=== PATIENT | female | born 1975 | race Caucasian/White ===

== ENCOUNTER 2016-07-31 18:03 | Emergency (ER) | payer OTHER ==
[~2016-07-31] VITALS: Ht 157.5 cm; Wt 70.4 kg
[~2016-07-31 18:03] MED LIST: ALLERGY SERUM INJ; FEXO1TAB49 PO; MOME200A INH; TRIA1SPR4 NAE
[2016-07-31 18:06] VITALS: TEMP 36.9; Ht 157.5 cm; Wt 70.4 kg
--- NOTE | 2016-07-31 18:24 | EMERGENCY ROOM VISIT NOTE ---
History Report prepared by Nacho: Jeremias Centeno Under the Supervision of: Dr. Tyler Ambriz M.D. First contact with patient: 18:10 Chief Complaint: ED VAG BLEEDING Stated Complaint: CHO, SPOTTING, CRAMPING- 14 WKS History of Present Illness The patient is a 41 year old female who presents to the Emergency Room with complaints of an episode of vaginal bleeding that occurred earlier today. The patient is 14-weeks and follows up with Vonda WAYNE. She says that so far the has been going fine. The patient had blood work done, and had even more extensive testing due to older age. She had an ultrasound done at 7-weeks and had another one a few weeks ago. Everything came out fine. Last Saturday, the patient had an appointment and had the heartbeat checked, and everything was good. 2 days ago, she started getting abdominal pain and noted a lot of gas. She did not have a bowel movement for 2 days, which was unusual for her. Later that day, she had 5 quick bouts of diarrhea. She could not get in touch with her OBGYN. Today, she went to her chiropractor and noticed spotting on her underwear. The bleeding was not heavy. She says her pain has gone away, although she has been having a headache today that is unlike previous migraines that she have had. She did get nauseous as well when the chiropractor was working on her neck. The patient is allergic to Tylenol. The patient does note that last night she stayed up really late due to work she had to do, and did not get much sleep. She has been exhausted the entire , but she says she was told this is normal. Source of History: patient Onset: Earlier today Position: other (vaginal bleeding) Symptom Intensity: "not heavy" Timing: other (episode) Associated Symptoms: + abdominal pain (has since resolved), + diarrhea ( since resolved), + nausea Note: No other associated symptoms noted. Review of Systems See HPI for pertinent positives & negatives. A total of 10 systems reviewed and were otherwise negative. Past Medical & Surgical Medical Problems: (1) FEMORAL NEUROPATHY Family History FHx: cancer Heart disease Social History Smoking Status: Never Smoker Alcohol Use: none Drug Use: none Marital Status: in relationship Housing Status: lives with family Occupation Status: employed Current/Historical Medications Scheduled Ascorbic Acid (Vitamin C), 500 MG PO DAILY B-Complex Vitamins (Vitamin B Complex), 1 TAB PO DAILY Cholecalciferol (Vitamin D3), 1,000 MCG PO DAILY Multivit/Min/Iron/Fol Ac/Pren ( Vitamin), 1 TAB PO DAILY Scheduled PRN Epinephrine (Epipen 2-Barry), 0.3 MG IM UD PRN for ALLERGIC REACTION Allergies Coded Allergies: Cefazolin (Verified Allergy, Severe, HIVES, 03/17/13) RECEIVED INITIAL DOSE THEN BECAME ITCHY AND HAD A HIVE BELOW HER LEFT EYE Ciprofloxacin (Verified Allergy, Severe, TROUBLE BREATHING, 03/17/13) Iodinated Diagnostic Agents (Verified Allergy, Severe, HIVES,SOB, 04/30/15 ) Red Dye (Verified Allergy, Severe, RED #40 = HIVES ANAPHYLAXIS, 03/17/13) [place] (Verified Allergy, Intermediate, HIVES, 03/17/13) Erythromycin (Verified Allergy, Intermediate, HIVES, 03/17/13) Guaifenesin (Verified Allergy, Intermediate, HIVES, 03/17/13) Meglumine (Verified Allergy, Intermediate, HIVES, 03/17/13) Phenylephrine (Verified Allergy, Intermediate, HIVES, 03/17/13) Shellfish (Verified Allergy, Intermediate, HIVES, 03/17/13) Water, Sterile (Verified Allergy, Intermediate, HIVES, 03/17/13) Aspirin (Verified Allergy, Unknown, HIVES, 03/17/13) BEE STING (Verified Allergy, Unknown, swelling, 04/30/15) [place] Oil (Verified Allergy, Unknown, HIVES, 04/30/15) can tolerate in sm amts High Fructose [place] Syrup (Verified Allergy, Unknown, HIVES, 04/30/15) Wheat (Verified Allergy, Unknown, HIVES, 04/30/15) can tolerate sm amts Physical Exam Vital Signs Date Time Temp Pulse Resp B/P Pulse Ox O2 Delivery O2 Flow Rate FiO2 07/31/16 19:20 96 18 130/68 97 07/31/16 18:06 36.9 107 16 130/85 100 Room Air Physical Exam GENERAL: Patient is anxious appearing and in minimal distress. HEENT: No acute trauma, normocephalic atraumatic, mucous membranes moist, no nasal congestion, no scleral icterus. NECK: No stridor, no adenopathy, no meningismus, trachea is midline. LUNGS: No dyspnea. Clear to auscultation and equal bilaterally. No wheeze, no rhonchi. HEART: Regular rate and rhythm. No murmurs, rubs, gallops appreciated. ABDOMEN: Soft, nontender, bowel sounds positive, no masses appreciated, no peritonitis. BACK: No midline tenderness, no CVA tenderness EXTREMITIES: Normal motion all extremities, no cyanosis, no edema. NEUROLOGIC: Alert and oriented, no acute motor or sensory deficits, no focal weakness, cranial nerves grossly intact. SKIN: No rash, no jaundice, no diaphoresis. Medical Decision & Procedures Laboratory Results Test 07/31/16 18:40 Urine Color YELLOW Urine Appearance CLEAR (CLEAR) Urine pH 5.5 (4.5-7.5) Urine Specific [place] 1.000 (1.000-1.030) Urine Protein NEG (NEG) Urine Glucose (UA) NEG (NEG) Urine Ketones NEG (NEG) Urine Occult Blood NEG (NEG) Urine Nitrite NEG (NEG) Urine Bilirubin NEG (NEG) Urine Urobilinogen NEG (NEG) Urine Leukocyte Esterase TRACE (NEG) Urine WBC (Auto) 1-5 /hpf (0-5) Urine RBC (Auto) 0-4 /hpf (0-4) Urine Hyaline Casts (Auto) 0 /lpf (0-5) Urine Epithelial Cells (Auto) >30 /lpf (0-5) Urine Bacteria (Auto) NEG (NEG) Laboratory results as reviewed by me. ED Course 1809: The patient was evaluated in room B8. A complete history and physical exam was performed. 1837: I performed a bedside ultrasound, which revealed an intrauterine with a heart rate of 150 and a right lateral small subchorionic hemorrhage. 1910: I reevaluated the patient and she is resting comfortably. The patient verbally expressed understanding and agreement of the treatment plan. The patient will be discharged. Medical Decision Differential: Menstrual Bleeding, Dysfunctional Uterine Bleeding, Infectious, Ectopic , Bleeding Dyscrasia, amongst other pathologies entertained. 41 yr old female arrives with scant vaginal spotting earlier in the day with some abdominal cramping. She notes being 14 wks without previous issues thus far. Abdomen is benign without surgical findings. She is not significantly hypertensive. Mild headache though admits increased stress and minimal sleep. Does not have meningitis by examination and notes with closing eyes for a bit already feeling better. Bedside US with IUP, + movement and normal FHR. Questionable small right lateral subchorionic hemorrhage by US. UA is clear. She she stable and looks well. Follow up with OB tomorrow to double check that her blood type O+ which she says was just done the other day. Impression Primary Impression: Vaginal bleeding in patient at less than 20 weeks gestation Additional Impression: Subchorionic bleed Scribe Attestation The scribe's documentation has been prepared under my direction and personally reviewed by me in its entirety. I confirm that the note above accurately reflects all work, treatment, procedures, and medical decision making performed by me. Departure Information Dispostion Home / Self-Care Referrals Manuel Altamirano M.D. (PCP) Forms HOME CARE DOCUMENTATION FORM, IMPORTANT VISIT INFORMATION, WORK / SCHOOL INSTRUCTIONS Patient Instructions Bleeding Early Preg, My [facility] Health Problem Qualifiers Additional Impression: Subchorionic bleed Fetus number: single or unspecified fetus Trimester: second trimester Qualified Codes: O41.8X20 - Other specified disorders of amniotic fluid and membranes, second trimester, not applicable or unspecified
[2016-07-31 19:04] LABS: URINE APPEARANCE CLEAR (CLEAR); URINE BILIRUBIN NEG (NEG); URINE COLOR YELLOW; URINE EPITHELIAL CELL AUTO >30 /lpf (0-5); URINE NITRITE NEG (NEG); URINE PH 5.5 (4.5-7.5); UROBILINOGEN NEG (NEG); ZZUR CULT IF INDIC CLEAN CATCH NO
[2016-07-31 19:05] LABS: MANUAL MICROSCOPIC REQUIRED? NO; REVIEW REQ? NO
[2016-07-31 19:20] VITALS: BP 130/68; PULSE 96; O2SAT 97
[2016-10-02] MEDS ORDERED: CHOL1000 PO (10:44)
[2016-10-02] MEDS ORDERED: PRENTAB26 PO (11:11)
[2016-10-02] MEDS ORDERED: ASCO500C5 PO (18:28)
[2016-10-02] MEDS ORDERED: B-COTAB18 PO (18:28)
[2016-10-02] MEDS ORDERED: EPP3/2 IM (18:28)
== END 2016-07-31 19:22 | disposition home or self-care (01) ==
LOC: C.EDB 18:04
DX: O20.8 Other hemorrhage in early pregnancy (principal); Z3A.14 14 weeks gestation of pregnancy; Z88.2 Allergy status to sulfonamides; Z88.3 Allergy status to other anti-infective agents; Z88.8 Allergy status to other drugs, medicaments and biological substances; Z88.6 Allergy status to analgesic agent; Z91.018 Allergy to other foods; Z91.030 Bee allergy status; Z91.041 Radiographic dye allergy status; Z80.9 Family history of malignant neoplasm, unspecified; Z82.49 Family history of ischemic heart disease and other diseases of the circulatory system

== ENCOUNTER 2016-09-15 21:54 | Emergency (ER) | payer OTHER ==
[~2016-09-15] VITALS: Ht 157.5 cm; Wt 73.4 kg
[2016-09-15 22:04] VITALS: TEMP 37.1; Ht 157.5 cm; Wt 73.4 kg
[2016-09-15] MEDS ORDERED: SODIUM CHLORIDE 0.9% 1000ML 1,000 ML IV STA (22:17)
[2016-09-15 22:38] LABS: MANUAL MICROSCOPIC REQUIRED? NO; REVIEW REQ? NO; URINE APPEARANCE CLEAR (CLEAR); URINE BILIRUBIN NEG (NEG); URINE COLOR YELLOW; URINE EPITHELIAL CELL AUTO >30 /lpf (0-5); URINE NITRITE NEG (NEG); URINE SPECIFIC GRAVITY 1.008 (1.000-1.030); UROBILINOGEN NEG (NEG); ZZUR CULT IF INDIC CLEAN CATCH YES
[2016-09-15 22:57] VITALS: O2SAT 96
[2016-09-15 23:08] LABS: BASO % 0.1 %; BASO ABS # 0.01 K/uL (0-0.2); COMPLETE YES; EOS % 1.4 %; HEMATOCRIT 31.6 % (37-47); IG% 0.9 %; LYMPH % 21.1 %; LYMPH ABS # 2.36 K/uL (1.2-3.4); MEAN CELL VOLUME 89.5 fL (80-100); MEAN CORPUSCULAR HEMOGLOBIN 31.4 pg (25-34); MEAN CORPUSCULAR HGB CONC 35.1 g/dl (32-36); MEAN PLATELET VOLUME 9.5 fL (7.4-10.4); NEUT % 71.5 %; PLATELET COUNT 289 K/uL (130-400); RED BLOOD COUNT 3.53 M/uL (4.2-5.4); WHITE BLOOD COUNT 11.18 K/uL (4.8-10.8)
[2016-09-15 23:22] LABS: ALT/SGPT 26 U/L (12-78); AST/SGOT 16 U/L (15-37); BLOOD UREA NITROGEN 10 mg/dl (7-18); BUN/CREATININE RATIO 15.3 (10-20); CALCIUM 8.8 mg/dl (8.5-10.1); CARBON DIOXIDE 25 mmol/L (21-32); CHLORIDE 108 mmol/L (98-107); CREATININE 0.64 mg/dl (0.60-1.20); GLUCOSE 110 mg/dl (70-99); MAGNESIUM 1.9 mg/dl (1.8-2.4); POTASSIUM 3.5 mmol/L (3.5-5.1); SODIUM 143 mmol/L (136-145)
[2016-09-15] MEDS ORDERED: ALUMINUM/MAGNESIUM SUSP 30 ML UDC PO STA (23:30)
[2016-09-15 23:33] LABS: ALKALINE PHOSPHATASE 86 U/L (45-117)
[2016-09-16 00:25] VITALS: BP 112/63; PULSE 89; O2SAT 97
--- NOTE | 2016-09-16 01:51 | EMERGENCY ROOM VISIT NOTE ---
History First contact with patient: 22:12 Chief Complaint: SYNCOPE (NEAR SYNCOPE) Stated Complaint: EXHAUSTION,NAUSEA,SEEING STARTS History of Present Illness The patient is a 41 year old female who presents to the Emergency Room with complaints of nausea, fatigue and near syncopal episode [place] the [place] around. It had been several hours since the patient had eaten. She states she felt lightheaded and felt like she was going to pass out. She sat down and felt much better. She had some fries but the chicken cheesesteak was discussing and did not want to eat it. Patient states she feels better now. Patient denies chest pain, dyspnea, fever, chills, abdominal pain, problems with the , vaginal bleeding, vaginal discharge, urinary symptoms, recent illness. Patient states last week she was similar episode. She states when she felt like she is going to pass out she saw stars. No complete loss of vision. Patient also complains of occasional heartburn Review of Systems See HPI for pertinent positives & negatives. A total of 10 systems reviewed and were otherwise negative. Past Medical/Surgical History Medical Problems: (1) FEMORAL NEUROPATHY Family History FHx: cancer Heart disease Social History Smoking Status: Never Smoker Alcohol Use: none Drug Use: none Marital Status: in relationship Housing Status: lives with family Occupation Status: employed Current/Historical Medications Scheduled Ascorbic Acid (Vitamin C), 500 MG PO DAILY B-Complex Vitamins (Vitamin B Complex), 1 TAB PO DAILY Cholecalciferol (Vitamin D3), 2,000 INTER.UNIT PO DAILY Multivit/Min/Iron/Fol Ac/Pren ( Vitamin), 1 TAB PO DAILY Scheduled PRN Epinephrine (Epipen 2-Barry), 0.3 MG IM UD PRN for ALLERGIC REACTION Allergies Coded Allergies: Cefazolin (Verified Allergy, Severe, HIVES, 03/17/13) RECEIVED INITIAL DOSE THEN BECAME ITCHY AND HAD A HIVE BELOW HER LEFT EYE Ciprofloxacin (Verified Allergy, Severe, TROUBLE BREATHING, 03/17/13) Iodinated Diagnostic Agents (Verified Allergy, Severe, HIVES,SOB, 04/30/15 ) Red Dye (Verified Allergy, Severe, RED #40 = HIVES ANAPHYLAXIS, 03/17/13) [place] (Verified Allergy, Intermediate, HIVES, 03/17/13) Erythromycin (Verified Allergy, Intermediate, HIVES, 03/17/13) Guaifenesin (Verified Allergy, Intermediate, HIVES, 03/17/13) Meglumine (Verified Allergy, Intermediate, HIVES, 03/17/13) Phenylephrine (Verified Allergy, Intermediate, HIVES, 03/17/13) Shellfish (Verified Allergy, Intermediate, HIVES, 03/17/13) Water, Sterile (Verified Allergy, Intermediate, HIVES, 03/17/13) Aspirin (Verified Allergy, Unknown, HIVES, 03/17/13) BEE STING (Verified Allergy, Unknown, swelling, 04/30/15) [place] Oil (Verified Allergy, Unknown, HIVES, 04/30/15) can tolerate in sm amts High Fructose [place] Syrup (Verified Allergy, Unknown, HIVES, 04/30/15) Wheat (Verified Allergy, Unknown, HIVES, 04/30/15) can tolerate sm amts Physical Exam Vital Signs Date Time Temp Pulse Resp B/P Pulse Ox O2 Delivery O2 Flow Rate FiO2 09/16/16 00:25 89 18 112/63 97 09/15/16 23:35 96 16 131/74 97 Room Air 09/15/16 23:33 96 123/71 90 127/73 95 131/74 09/15/16 22:57 96 Room Air 09/15/16 22:57 Room Air 09/15/16 22:23 97 09/15/16 22:04 37.1 103 18 127/70 100 Room Air Pain Rating (0-10): 0 Physical Exam VITALS: Vitals are noted on the nurse's note and reviewed by myself. Vital signs stable. GENERAL: Pleasant female, in no acute distress, nondiaphoretic, well-developed well-nourished. SKIN: The skin was without rashes, erythema, edema, or bruising. There is no tenting of the skin. Capillary reflex less than 2 seconds. HEAD: Normocephalic atraumatic. EARS: External auditory canals clear, tympanic membranes pearly fernandez without erythema or effusion bilaterally. EYES: Pupils equal round and reactive to light and accommodation. Conjunctivae without injection, sclerae without icterus. Extraocular movements intact. NOSE: Patent, turbinates without inflammation or discharge. MOUTH: Mucous membranes moist. Pharynx without erythema or exudate. Uvula midline. Airway patent. Tongue does not deviate. NECK: Supple without nuchal rigidity. No lymphadenopathy. No thyromegaly. Cervical spine is nontender. No JVD. HEART: Regular rate and rhythm without murmurs gallops or rubs. LUNGS: Clear to auscultation bilaterally without wheezes, rales or rhonchi. No dullness to percussion. No retractions or accessory muscle use. ABDOMEN: Positive bowel sounds x 4. Normal tympanic percussion. Soft, or neck , nontender, without masses or organomegaly. Griffith sign negative. No guarding or rebound tenderness. MUSCULOSKELETAL: No muscle atrophy, erythema, or edema noted. NEURO: Patient was alert and oriented to person place and time. Normal sensation to light and sharp touch. No focal neurological deficits. Cranial nerves II through XII grossly intact. No pronator drift. Cerebellar exam intact. Medical Decision & Procedures Laboratory Results 09/15/16 22:55 Red Blood Count 3.53, Mean Corpuscular Volume 89.5, Mean Corpuscular Hemoglobin 31.4, Mean Corpuscular Hemoglobin Concent 35.1, Mean Platelet Volume 9.5, Neutrophils (%) (Auto) 71.5, Lymphocytes (%) (Auto) 21.1, Monocytes (%) (Auto) 5.0, Eosinophils (%) (Auto) 1.4, Basophils (%) (Auto) 0.1, Neutrophils # (Auto) 7.99, Lymphocytes # (Auto) 2.36, Monocytes # (Auto) 0.56, Eosinophils # (Auto) 0.16, Basophils # (Auto) 0.01 09/15/16 22:55 Test 09/15/16 22:12 09/15/16 22:15 09/15/16 22:55 Bedside Glucose 115 mg/dl (70-90) Urine Color YELLOW Urine Appearance CLEAR (CLEAR) Urine pH 5.0 (4.5-7.5) Urine Specific [place] 1.008 (1.000-1.030) Urine Protein NEG (NEG) Urine Glucose (UA) NEG (NEG) Urine Ketones NEG (NEG) Urine Occult Blood NEG (NEG) Urine Nitrite NEG (NEG) Urine Bilirubin NEG (NEG) Urine Urobilinogen NEG (NEG) Urine Leukocyte Esterase TRACE (NEG) Urine WBC (Auto) 5-10 /hpf (0-5) Urine RBC (Auto) 0-4 /hpf (0-4) Urine Hyaline Casts (Auto) 1-5 /lpf (0-5) Urine Epithelial Cells (Auto) >30 /lpf (0-5) Urine Bacteria (Auto) 1+ (NEG) White Blood Count 11.18 K/uL (4.8-10.8) Red Blood Count 3.53 M/uL (4.2-5.4) Hemoglobin 11.1 g/dL (12.0-16.0) Hematocrit 31.6 % (37-47) Mean Corpuscular Volume 89.5 fL (80-100) Mean Corpuscular Hemoglobin 31.4 pg (25-34) Mean Corpuscular Hemoglobin Concent 35.1 g/dl (32-36) Platelet Count 289 K/uL (130-400) Mean Platelet Volume 9.5 fL (7.4-10.4) Neutrophils (%) (Auto) 71.5 % Lymphocytes (%) (Auto) 21.1 % Monocytes (%) (Auto) 5.0 % Eosinophils (%) (Auto) 1.4 % Basophils (%) (Auto) 0.1 % Neutrophils # (Auto) 7.99 K/uL (1.4-6.5) Lymphocytes # (Auto) 2.36 K/uL (1.2-3.4) Monocytes # (Auto) 0.56 K/uL (0.11-0.59) Eosinophils # (Auto) 0.16 K/uL (0-0.5) Basophils # (Auto) 0.01 K/uL (0-0.2) RDW Standard Deviation 45.1 fL (36.4-46.3) RDW Coefficient of Variation 13.8 % (11.5-14.5) Immature Granulocyte % (Auto) 0.9 % Immature Granulocyte # (Auto) 0.10 K/uL (0.00-0.02) Anion Gap 10.0 mmol/L (3-11) Est Creatinine Clear Calc Drug Dose 106.3 ml/min Estimated GFR () 126.7 Estimated GFR (Non- 109.3 BUN/Creatinine Ratio 15.3 (10-20) Calcium Level 8.8 mg/dl (8.5-10.1) Magnesium Level 1.9 mg/dl (1.8-2.4) Total Bilirubin 0.2 mg/dl (0.2-1) Direct Bilirubin < 0.1 mg/dl (0-0.2) Aspartate Amino Transf (AST/SGOT) 16 U/L (15-37) Alanine Aminotransferase (ALT/SGPT) 26 U/L (12-78) Alkaline Phosphatase 86 U/L (45-117) Total Protein 6.6 gm/dl (6.4-8.2) Albumin 2.9 gm/dl (3.4-5.0) Thyroid Stimulating Hormone (TSH) 3.410 uIu/ml (0.300-4.500) Medications Administered Medications (Trade) Dose Ordered Sig/Enrique Route Start Time Stop Time Status Last Admin Dose Admin Sodium Chloride (Nss 1000ml) 1,000 ml @ 999 mls/hr Q1H1M STAT IV 09/15/16 22:17 09/15/16 23:17 DC 09/15/16 22:59 999 MLS/HR Al Hydroxide/Mg Hydroxide (Maalox Susp) 30 ml NOW STAT PO 09/15/16 23:30 09/15/16 23:31 DC 09/15/16 23:30 30 ML ED Course Prior records/ancillary studies reviewed. Triage Nursing notes reviewed. Additional history obtained from family. The patient's history was concerning for near syncope. Differential diagnosis: Etiologies such as vasovagal event, infection, hypoglycemia, electrolyte abnormalities, cardiac sources, intracerebral event, toxicologic, neurologic, as well as others were entertained. Physical examination: Patient is alert, interactive and well-appearing ER treatment provided: IV hydration with normal saline, Maalox On reassessment the patient felt better. Diagnostics interpretation by me: ECG: Normal sinus, normal intervals, and incomplete right bundle branch block, no acute ST-T wave changes, rate of 100. Impression incomplete right bundle branch block interpreted by myself The labs revealed mild leukocytosis most likely from . No worrisome electrolyte abnormality This appears to be consistent with near-syncope. Patient felt much better after sitting down. She was neurovascularly and neurologically intact. Unremarkable workup as above. She is advised to eat frequent meals and to stay well hydrated. She is advised to avoid overexertion. She is advised to try Benadryl for congestion and Maalox for heartburn. She is advised to follow-up with her OB in a few days or here in the ER sooner for chest pain, difficulty breathing, syncope, worsening signs or symptoms or as needed. heart tones were within normal limits. By the evaluation outlined above emergent etiologies such as infection, hypoglycemia, electrolyte abnormalities, cardiac sources, intracerebral event, toxicologic, neurologic,as well as others were deemed relatively unlikely. The pt informed about the findings as listed above. All questions were answered and pleased with the treatment. Return instructions were outlined and the patient was discharged in stable condition. Referral: The patient was referred back to their primary care physician for follow-up in 2 to 3 days for a recheck of the current condition. Medical Decision As above Impression Primary Impression: Near syncope Departure Information Dispostion Home / Self-Care Condition GOOD Forms HOME CARE DOCUMENTATION FORM, IMPORTANT VISIT INFORMATION Patient Instructions My [facility] Additional Instructions Use Maalox for heartburn. You can try Benadryl for congestion. Rest and drink plenty of fluids as tolerated. Continue current medications. Return to the ER immediately for worsening or persistent syncope, abdominal pain , vomiting, fevers, chest pains, difficulty breathing, worsening of your condition, or as needed. Follow up with your primary physician in 2-3 days for a recheck of your current condition.
[2016-10-02] MEDS ORDERED: CHOL1000 PO (10:44)
[2016-10-02] MEDS ORDERED: PRENTAB26 PO (11:11)
[2016-10-02] MEDS ORDERED: ASCO500C5 PO (18:28)
[2016-10-02] MEDS ORDERED: EPP3/2 IM (18:28)
[2016-10-02] MEDS ORDERED: B-COTAB18 PO (18:28)
== END 2016-09-16 00:25 | disposition home or self-care (01) ==
LOC: C.EDB 21:57
DX: R55 Syncope and collapse (principal)

== ENCOUNTER 2016-10-02 19:48 | Emergency (ER) | payer OTHER ==
[~2016-10-02] VITALS: Ht 157.5 cm; Wt 71.0 kg
[~2016-10-02 19:48] MED LIST changes: -ALLERGY SERUM INJ; +ASCO500C5 PO; +B-COTAB18 PO; +CHOL1000 PO; +EPP3/2 IM; -FEXO1TAB49 PO; -MOME200A INH; +PRENTAB26 PO; -TRIA1SPR4 NAE
[2016-10-02 19:55] VITALS: TEMP 36.8; Ht 157.5 cm; Wt 71.0 kg
[2016-10-02 21:55] VITALS: O2SAT 99
[2016-10-02] MEDS ORDERED: SODIUM CHLORIDE 0.9% 1000ML 1,000 ML IV STA (22:09)
--- NOTE | 2016-10-02 22:15 | EMERGENCY ROOM VISIT NOTE ---
History Report prepared by Nacho: Janina Connell Under the Supervision of: Dr. Tyler Ambriz M.D. First contact with patient: 21:56 Chief Complaint: PALPITATIONS Stated Complaint: CHEST PAIN, DIZZY, PALPITATIONS Nursing Triage Summary: Patient states, "I have palpitations and lightheadedness. I get really hot in the face and neck." S/s began around 1200 today. Saw PCP this afternoon. Denies cardiac hx. 23 weeks . History of Present Illness The patient is a 41 year old female who presents to the Emergency Room with complaints of intermittent heart palpitations that started about a month ago but worsened around 1200 today. Associated symptoms include lightheadedness and "feeling hot." The patient reports that these symptoms happen about 30 minutes after eating. Today, the patient felt as though she was going to pass out. The patient saw her PCP this afternoon where she was told to eat smaller meals and increase fluid intake. The patient is 23 weeks . She denies a cardiac history. Source of History: patient Onset: about a month ago but worsened around 1200 today Position: other (Cardiovascular System ) Timing: intermittent Modifying Factors (Worsening): other (None) Note: Associated symptoms include lightheadedness and "feeling hot" Review of Systems See HPI for pertinent positives & negatives. A total of 10 systems reviewed and were otherwise negative. Past Medical & Surgical Medical Problems: (1) FEMORAL NEUROPATHY Family History FHx: cancer Heart disease Social History Smoking Status: Never Smoker Alcohol Use: none Drug Use: none Marital Status: Housing Status: lives with family Occupation Status: employed Current/Historical Medications Scheduled Ascorbic Acid (Vitamin C), 1,000 MG PO DAILY B-Complex Vitamins (Vitamin B Complex), 1 TAB PO DAILY Cholecalciferol (Vitamin D3), 2,000 INTER.UNIT PO DAILY Multivit/Min/Iron/Fol Ac/Pren ( Vitamin), 1 TAB PO DAILY Scheduled PRN Budesonide (Nasal) (Rhinocort Allergy), 1 SPRAY KAYLEY DAILY PRN for Notification Epinephrine (Epipen 2-Barry), 0.3 MG IM UD PRN for ALLERGIC REACTION Allergies Coded Allergies: Cefazolin (Verified Allergy, Severe, HIVES, 03/17/13) RECEIVED INITIAL DOSE THEN BECAME ITCHY AND HAD A HIVE BELOW HER LEFT EYE Ciprofloxacin (Verified Allergy, Severe, TROUBLE BREATHING, 03/17/13) Iodinated Diagnostic Agents (Verified Allergy, Severe, HIVES,SOB, 04/30/15 ) Red Dye (Verified Allergy, Severe, RED #40 = HIVES ANAPHYLAXIS, 03/17/13) Ponder (Verified Allergy, Intermediate, HIVES, 03/17/13) Erythromycin (Verified Allergy, Intermediate, HIVES, 03/17/13) Guaifenesin (Verified Allergy, Intermediate, HIVES, 03/17/13) Meglumine (Verified Allergy, Intermediate, HIVES, 03/17/13) Phenylephrine (Verified Allergy, Intermediate, HIVES, 03/17/13) Shellfish (Verified Allergy, Intermediate, HIVES, 03/17/13) Water, Sterile (Verified Allergy, Intermediate, HIVES, 03/17/13) Aspirin (Verified Allergy, Unknown, HIVES, 03/17/13) BEE STING (Verified Allergy, Unknown, swelling, 04/30/15) [place] Oil (Verified Allergy, Unknown, HIVES, 04/30/15) can tolerate in sm amts High Fructose [place] Syrup (Verified Allergy, Unknown, HIVES, 04/30/15) Wheat (Verified Allergy, Unknown, HIVES, 04/30/15) can tolerate sm amts Physical Exam Vital Signs Date Time Temp Pulse Resp B/P Pulse Ox O2 Delivery O2 Flow Rate FiO2 10/03/16 00:12 88 17 102/59 98 Room Air 10/02/16 23:04 86 22 107/60 96 Room Air 10/02/16 22:02 91 10/02/16 21:57 82 22 133/64 100 Room Air 10/02/16 21:55 99 Room Air 10/02/16 19:59 100 Room Air 10/02/16 19:55 36.8 94 18 140/79 100 Room Air Physical Exam GENERAL: Patient is anxious appearing, in minimal distress. HEENT: No acute trauma, normocephalic atraumatic, mucous membranes moist, no nasal congestion, no scleral icterus. NECK: No stridor, no adenopathy, no meningismus, trachea is midline. LUNGS: No dyspnea. Clear to auscultation and equal bilaterally. No wheeze, no rhonchi. HEART: Regular rate and rhythm. No murmurs, rubs, gallops appreciated. ABDOMEN: Fundus consistent with date. Soft, nontender, bowel sounds positive,no peritonitis. BACK: No midline tenderness, no CVA tenderness EXTREMITIES: Normal motion all extremities, no cyanosis, no edema. NEUROLOGIC: Alert and oriented, no acute motor or sensory deficits, no focal weakness, cranial nerves grossly intact. SKIN: No rash, no jaundice, no diaphoresis. Medical Decision & Procedures Laboratory Results 10/02/16 22:00 Red Blood Count 3.55, Mean Corpuscular Volume 87.9, Mean Corpuscular Hemoglobin 29.9, Mean Corpuscular Hemoglobin Concent 34.0, Mean Platelet Volume 9.5 10/02/16 22:00 Test 10/02/16 22:00 White Blood Count 13.51 K/uL (4.8-10.8) Red Blood Count 3.55 M/uL (4.2-5.4) Hemoglobin 10.6 g/dL (12.0-16.0) Hematocrit 31.2 % (37-47) Mean Corpuscular Volume 87.9 fL (80-100) Mean Corpuscular Hemoglobin 29.9 pg (25-34) Mean Corpuscular Hemoglobin Concent 34.0 g/dl (32-36) Platelet Count 335 K/uL (130-400) Mean Platelet Volume 9.5 fL (7.4-10.4) RDW Standard Deviation 44.5 fL (36.4-46.3) RDW Coefficient of Variation 13.7 % (11.5-14.5) Neutrophils % (Manual) 77.4 % Lymphocytes % (Manual) 19.1 % Monocytes % (Manual) 3.5 % Neutrophils # (Manual) 10.46 K/uL (1.4-6.5) Total Absolute Neutrophils 10.46 K/uL (1.4-6.5) Lymphocytes # (Manual) 2.58 K/uL (1.2-3.4) Total Absolute Lymphocytes 2.58 K/uL (1.2-3.4) Monocytes # (Manual) 0.47 K/uL (0.11-0.59) Anion Gap 9.0 mmol/L (3-11) Est Creatinine Clear Calc Drug Dose 117.5 ml/min Estimated GFR () 131.6 Estimated GFR (Non- 113.5 BUN/Creatinine Ratio 13.3 (10-20) Calcium Level 8.8 mg/dl (8.5-10.1) Magnesium Level 2.1 mg/dl (1.8-2.4) Total Bilirubin 0.3 mg/dl (0.2-1) Direct Bilirubin < 0.1 mg/dl (0-0.2) Aspartate Amino Transf (AST/SGOT) 15 U/L (15-37) Alanine Aminotransferase (ALT/SGPT) 23 U/L (12-78) Alkaline Phosphatase 87 U/L (45-117) Total Creatine Kinase 36 U/L (26-192) Creatine Kinase MB < 0.5 ng/ml (0.5-3.6) Creatine Kinase MB Ratio (0-3.0) Troponin I < 0.015 ng/ml (0-0.045) Total Protein 6.7 gm/dl (6.4-8.2) Albumin 2.9 gm/dl (3.4-5.0) Lipase 103 U/L (73-393) Thyroid Stimulating Hormone (TSH) 4.060 uIu/ml (0.300-4.500) Free Thyroxine 0.80 ng/dl (0.80-1.60) Laboratory results as reviewed by me. Medications Administered Medications (Trade) Dose Ordered Sig/Enrique Route Start Time Stop Time Status Last Admin Dose Admin Sodium Chloride (Nss 1000ml) 1,000 ml @ 999 mls/hr Q1H1M STAT IV 10/02/16 22:09 10/02/16 23:09 DC 10/02/16 23:04 999 MLS/HR ECG Indication: palpitations Rate (beats per minute): 92 Rhythm: normal sinus Findings: RBBB (Incomplete), no acute ischemic change, no ectopy Comparison ECG Date: September 15, 2016 Change: no significant change ED Course 2200: The patient was evaluated in room B8. A complete history and physical exam was performed. 9: Ordered Sodium Chloride 1,000 ml @ 999 mls/hr IV. 2240: Upon reevaluation, the patient is resting comfortably. I discussed the treatment plan with the patient. She is agreeable at this time. The patient states that she thinks her symptoms could be related to anxiety. 2320: I performed a bedside ultrasound of the patient's baby. Normal findings. 2358: Reevaluated the patient. Discussed results and discharge instructions: She verbalized understanding and agreement. The patient is ready for discharge. Medical Decision Differential: NSR, SVT, PACs, PVCs, Cardiac Dysrhythmia, Endocrine Dysfunction, Electrolyte/Metabolic Abnormality, Pulmonary Embolism, Infectious, GI, amongst other pathologies entertained. Very pleasant 23 wk 41 yr old female arrives with intermittent palpitations associated with lightheadedness, flushing and flushing. Admits quite anxious about this. Seen 2 weeks ago for similar with normal work up. She has just mildly elevated BP for which came down nicely just with relaxing. Would not start antihypertensives in her given possibility of dropping too low. No arrythmia on EKG nor monitor. EKG unchanged from previous. Trop negative. No shob nor tachy thus I do not feel CT PE indicated in this patient. No neuro deficits thus imaging not indicated of head. No fevers. WBC mildly elevated consistent with , as is anemia. TSH unremarkable similar to previous. No clear indication for admission at this time. Requested Case Management contact OB or PCP to discuss holter monitor as outpatient. Stable throughout ED stay. Bedside US fetus unremarkable. Impression Primary Impression: Intermittent palpitations Additional Impression: Lightheaded Scribe Attestation The scribe's documentation has been prepared under my direction and personally reviewed by me in its entirety. I confirm that the note above accurately reflects all work, treatment, procedures, and medical decision making performed by me. Departure Information Dispostion Home / Self-Care Referrals Manuel Altamirano M.D. (PCP) Forms HOME CARE DOCUMENTATION FORM, IMPORTANT VISIT INFORMATION, WORK / SCHOOL INSTRUCTIONS Patient Instructions ED Palpitations, My [facility] Problem Qualifiers
[2016-10-02] MEDS ORDERED: BUDE1SUS8 NAE (22:28)
[2016-10-02 22:51] LABS: HEMATOCRIT 31.2 % (37-47); MEAN CELL VOLUME 87.9 fL (80-100); MEAN CORPUSCULAR HEMOGLOBIN 29.9 pg (25-34); MEAN PLATELET VOLUME 9.5 fL (7.4-10.4); PLATELET COUNT 335 K/uL (130-400); RED BLOOD COUNT 3.55 M/uL (4.2-5.4); WHITE BLOOD COUNT 13.51 K/uL (4.8-10.8)
[2016-10-02 22:58] LABS: ALT/SGPT 23 U/L (12-78); BLOOD UREA NITROGEN 8 mg/dl (7-18); BUN/CREATININE RATIO 13.3 (10-20); CALCIUM 8.8 mg/dl (8.5-10.1); CARBON DIOXIDE 24 mmol/L (21-32); CHLORIDE 107 mmol/L (98-107); CREATININE 0.57 mg/dl (0.60-1.20); GLUCOSE 98 mg/dl (70-99); MAGNESIUM 2.1 mg/dl (1.8-2.4); POTASSIUM 3.4 mmol/L (3.5-5.1); SODIUM 140 mmol/L (136-145)
[2016-10-02 23:06] LABS: ALKALINE PHOSPHATASE 87 U/L (45-117); AST/SGOT 15 U/L (15-37)
[2016-10-02 23:45] LABS: COMPLETE YES; LYMPH ABS # 2.58 K/uL (1.2-3.4); LYMPHOCYTE % 19.1 %; NEUTROPHILS % 77.4 %
[2016-10-03 00:12] VITALS: BP 102/59; PULSE 88; O2SAT 98
== END 2016-10-03 00:20 | disposition home or self-care (01) ==
LOC: C.EDB 19:50
DX: R00.2 Palpitations (principal); R42 Dizziness and giddiness; Z79.899 Other long term (current) drug therapy; Z88.2 Allergy status to sulfonamides; Z88.6 Allergy status to analgesic agent; Z88.8 Allergy status to other drugs, medicaments and biological substances; Z91.018 Allergy to other foods; Z91.030 Bee allergy status; Z91.041 Radiographic dye allergy status; Z91.09 Other allergy status, other than to drugs and biological substances; Z80.9 Family history of malignant neoplasm, unspecified; Z82.49 Family history of ischemic heart disease and other diseases of the circulatory system

== ENCOUNTER → 2016-11-06 | Outpatient (CLI) | payer OTHER ==
[~2016-11-06] MED LIST changes: +BUDE1SUS8 NAE; +MISC-696; +MTR600X PO; +OXYC-57 PO
[2016-11-06 17:46] LABS: HEMATOCRIT 31.5 % (37-47)
[2016-11-06 18:55] LABS: URINE APPEARANCE CLEAR (CLEAR); URINE BILIRUBIN NEG (NEG); URINE COLOR YELLOW; URINE EPITHELIAL CELL AUTO 20-30 /lpf (0-5); URINE NITRITE NEG (NEG); URINE PH 6.5 (4.5-7.5); URINE SPECIFIC GRAVITY 1.011 (1.000-1.030); UROBILINOGEN NEG (NEG)
[2016-11-06 18:56] LABS: MANUAL MICROSCOPIC REQUIRED? NO; REVIEW REQ? NO
== END | disposition home or self-care (01) ==
LOC: C.LAB1850 17:16
PROVIDERS: ATTEND Obstetrics & Gynecology
DX: O09.523 Supervision of elderly multigravida, third trimester (principal)

== ENCOUNTER → 2016-11-10 | Outpatient (CLI) | payer OTHER | END | disposition home or self-care (01) | LOC: C.LAB 07:30 | PROVIDERS: ATTEND Obstetrics & Gynecology | DX: O09.523 Supervision of elderly multigravida, third trimester (principal); Z3A.00 Weeks of gestation of pregnancy not specified ==

== ENCOUNTER → 2017-01-02 | Outpatient (CLI) | payer OTHER | END | disposition home or self-care (01) | LOC: C.LABSPEC 17:31 | PROVIDERS: ATTEND Obstetrics & Gynecology | DX: O09.523 Supervision of elderly multigravida, third trimester (principal) ==

== ENCOUNTER 2017-01-25 06:01 | Inpatient (IN) | payer OTHER ==
[2017-01-24 12:59] VITALS: BMI 29.0
--- NOTE | 2017-01-24 13:37 | PAT Medication Instructions ---
Service Date Jan 24, 2017. Current Home Medication List Ascorbic Acid (Vitamin C), 1,000 MG PO QAM B-Complex Vitamins (Vitamin B Complex), 1 TAB PO QAM Cholecalciferol (Vitamin D3), 2,000 INTER.UNIT PO QAM Epinephrine (Epipen 2-Barry), 0.3 MG IM UD PRN for ALLERGIC REACTION Multivit/Min/Iron/Fol Ac/Pren ( Vitamin), 2 TAB PO QAM Medication Instructions For Your Scheduled Surgery - Hold the following medications the morning of surgery: Ascorbic Acid (Vitamin C), 1,000 MG PO QAM B-Complex Vitamins (Vitamin B Complex), 1 TAB PO QAM Cholecalciferol (Vitamin D3), 2,000 INTER.UNIT PO QAM Multivit/Min/Iron/Fol Ac/Pren ( Vitamin), 2 TAB PO QAM If you have any questions please call us at [phone] or [phone] or [phone]
--- NOTE | 2017-01-24 14:02 | History and Physical ---
History & Physical Date Jan 24, 2017. Chief Complaint for repeat section History of Present Illness The patient is a 41 year old female EDC 01/28/17 who presents at 39+ weeks for repeat C/S. first C/S was done because of arrest of descent following failed vacuum attempt. This has been complicated by GDM on insulin, AMA,& hogan palpitations with diagnosis of RBBB. Past Medical/Surgical History Medical Problems: (1) FEMORAL NEUROPATHY Past surgical History: wisdom teeth extraction appendectomy basal cell /melanoma excision sinus surgery arrest of descent Additional History Hepatic Disease: No Endocrine Disorder: Yes Kidney Disease: No Hypertension: No Heart Disease: RBBB Bleeding Tendencies: No Infectious Diseases: No Other: History: O positive, antibody screen negative Rubella Immune RPR NR HBsAg negative HIV negative. GC/chlam not detected Panorama normal ACat36 weeks-96%tile/ EFW 89%tile THOMAS- WNL. GBS -negative anatomy scan complete & normal Allergies Coded Allergies: Cefazolin (Verified Allergy, Severe, HIVES, 01/24/17) RECEIVED INITIAL DOSE THEN BECAME ITCHY AND HAD A HIVE BELOW HER LEFT EYE Ciprofloxacin (Verified Allergy, Severe, TROUBLE BREATHING, 01/24/17) Iodinated Diagnostic Agents (Verified Allergy, Severe, HIVES,SOB, 01/24/17) Red Dye (Verified Allergy, Severe, RED #40 = HIVES ANAPHYLAXIS, 01/24/17) [place] (Verified Allergy, Intermediate, HIVES, 01/24/17) Erythromycin (Verified Allergy, Intermediate, HIVES, 01/24/17) Guaifenesin (Verified Allergy, Intermediate, HIVES, 01/24/17) Meglumine (Verified Allergy, Intermediate, HIVES, 01/24/17) Nut Tree (Verified Allergy, Intermediate, HIVES, 01/24/17) Phenylephrine (Verified Allergy, Intermediate, HIVES, 01/24/17) Shellfish (Verified Allergy, Intermediate, HIVES, 01/24/17) Codeine (Verified Allergy, Mild, RED AND NAUSEA AND HIVES AND FEELS LIKE PASS OUT, 01/24/17) Aspirin (Verified Allergy, Unknown, HIVES, 01/24/17) BEE STING (Verified Allergy, Unknown, swelling, 01/24/17) [place] Oil (Verified Allergy, Unknown, HIVES, 01/24/17) can tolerate in sm amts High Fructose [place] Syrup (Verified Allergy, Unknown, HIVES, 01/24/17) Wheat (Verified Allergy, Unknown, HIVES, 01/24/17) can tolerate sm amts Home Medications Scheduled Ascorbic Acid (Vitamin C), 1,000 MG PO QAM B-Complex Vitamins (Vitamin B Complex), 1 TAB PO QAM Cholecalciferol (Vitamin D3), 2,000 INTER.UNIT PO QAM Multivit/Min/Iron/Fol Ac/Pren ( Vitamin), 2 TAB PO QAM Scheduled PRN Epinephrine (Epipen 2-Barry), 0.3 MG IM UD PRN for ALLERGIC REACTION Physical Examination Skin: warm/dry Eyes: normal inspection ENT: normal ENT inspection Head: normocephalic Neck: supple Respiratory/Chest: lungs clear Cardiovascular: regular rate, rhythm Abdomen / GI: non tender (FUndal height 39 cm) Extremities: normal inspection Neurologic/Psych: alert, oriented x 3 ASA Classification: ASA Class II Plan of Treatment For repeat sectioin on 01/25/17. the procedure and risks were discussed at length and dall questions were answered. please orders for further directions.
[2017-01-24 15:01] LABS: BASO % 0.1 %; BASO ABS # 0.01 K/uL (0-0.2); COMPLETE YES; EOS % 0.5 %; HEMATOCRIT 32.5 % (37-47); IG% 0.7 %; LYMPH % 19.4 %; LYMPH ABS # 2.02 K/uL (1.2-3.4); MEAN CORPUSCULAR HEMOGLOBIN 28.6 pg (25-34); MEAN CORPUSCULAR HGB CONC 33.2 g/dl (32-36); MEAN PLATELET VOLUME 10.6 fL (7.4-10.4); MONO % 4.8 %; NEUT % 74.5 %; PLATELET COUNT 257 K/uL (130-400); RED BLOOD COUNT 3.78 M/uL (4.2-5.4); WHITE BLOOD COUNT 10.43 K/uL (4.8-10.8)
[2017-01-25] VITALS (15 sets, daily range): BP systolic 90–99; BP diastolic 59–65; PULSE 47–62; TEMP 36.3–37; O2SAT 95–100; Ht 160 cm; Wt 71.8 kg
[~2017-01-25] VITALS: Ht 160 cm; Wt 71.8 kg
[~2017-01-25 06:01] MED LIST changes: -BUDE1SUS8 NAE; +CITRIC ACID/SODIUM CITRATE 15 ML UDC PO SCH; +CLINDAMYCIN IV 900 MG in DEXTROSE 5% ADD-VANTAGE 100ML IV ONE; +LACTATED RINGER'S 1000ML 1,000 ML IV SCH; -MISC-696; -MTR600X PO; -OXYC-57 PO; +VANCOMYCIN INJ 1,000 MG in SODIUM CHLORIDE 0.9% 250ML 250 ML IV SCH
[2017-01-25] MEDS ORDERED: LACTATED RINGER'S 1000ML 1,000 ML IV SCH (06:07)
[2017-01-25] MEDS ORDERED: CITRIC ACID/SODIUM CITRATE 15 ML UDC PO ONE (06:15)
[2017-01-25 06:59] LABS: BASO % 0.2 %; BASO ABS # 0.02 K/uL (0-0.2); COMPLETE YES; EOS % 0.7 %; HEMATOCRIT 33.8 % (37-47); IG% 0.7 %; LYMPH % 22.4 %; LYMPH ABS # 2.31 K/uL (1.2-3.4); MEAN CELL VOLUME 86.7 fL (80-100); MEAN CORPUSCULAR HEMOGLOBIN 28.2 pg (25-34); MEAN CORPUSCULAR HGB CONC 32.5 g/dl (32-36); MEAN PLATELET VOLUME 10.8 fL (7.4-10.4); MONO % 5.9 %; NEUT % 70.1 %; PLATELET COUNT 255 K/uL (130-400); WHITE BLOOD COUNT 10.31 K/uL (4.8-10.8)
[2017-01-25] MEDS ORDERED: VANCOMYCIN 1GM/270ML NSS IV STA (07:35)
[2017-01-25] MEDS ORDERED: FENTANYL CITRATE INJ 50 MCG/1 ML 2 ML VIAL ONE (07:40)
[2017-01-25] MEDS ORDERED: MoRPHine SULFATE PF 1 MG/ML 10 ML AMP/VIAL ONE (07:41)
[2017-01-25] MEDS ORDERED: OXYTOCIN INJ 10 UNITS/ML VIAL ONE ×2 (07:45→09:03)
[2017-01-25] MEDS ORDERED: PHENYLEPHRINE HCL INJ 10 MG/ML VIAL ONE (07:45)
--- NOTE | 2017-01-25 07:50 | History & Physical Bridge Note ---
H&P Re-Evaluation Bridge Note: I have examined the patient, reviewed the History & Physical and in the interval since the performance of the History & Physical I have noted the following changes of clinical significance: No changes noted
[2017-01-25] MEDS ORDERED: ONDANSETRON INJ 2 MG/ML 2 ML VIAL ONE (08:32)
[2017-01-25] MEDS ORDERED: DEXAMETHASONE SOD INJ 4 MG/ML VIAL ONE (08:54)
[2017-01-25] MEDS ORDERED: OXYTOCIN INJ 0.02 UNITS in LACTATED RINGER'S 1000ML 1 ML IV SCH (09:22)
--- NOTE | 2017-01-25 09:26 | Medical Student: [facility] ---
Operative Report Operative Date Jan 25, 2017. Pre-Operative Diagnosis 41 yr old for repeat , prior C/S Post-Operative Diagnosis same as pre-op Procedure(s) Performed repeat low transverse section Surgeon Dr. Alberts Mica Plate Layer Hand Surgeon(s) Dr. Ceballos Estimated Blood Loss 600mL Findings Viable female infant, Apgars 9/9, weight 8 lbs 9 oz. Spontaneous crying and movement of all 4 limbs after delivery. Grossly normal uterus, fallopian tubes. Fluids (cc crystalloids) 1500mL Specimens Placenta, cord blood Drains Howell Catheter Anesthesia Spinal Complication(s) None Disposition L&D
[2017-01-25] MEDS ORDERED: HYDROCORTISONE ACETATE 25 MG SUPP PR PRN (09:30)
[2017-01-25] MEDS ORDERED: SUPERCREAM 0.870 % 15GM JAR EXT PRN (09:30)
[2017-01-25] MEDS ORDERED: BENZOCAINE 20% AER SPR 82.5 GM CAN EXT PRN (09:30)
[2017-01-25] MEDS ORDERED: DIPHTHERIA/TETANUS/PERTUSSIS 0.5 ML SYR/VIAL IM. ONE (09:30)
[2017-01-25] MEDS ORDERED: LANOLIN OINT EXT PRN ×2 (09:30)
[2017-01-25] MEDS ORDERED: MAGNESIUM HYDROXIDE SUSP 30 ML UDC PO PRN (09:30)
[2017-01-25] MEDS ORDERED: SENNA 8.6 MG TAB PO PRN (09:30)
[2017-01-25] MEDS ORDERED: NALOXONE HCL INJ 0.08 MG in SYRINGE 1.8 ML IV PRN (09:32)
[2017-01-25] MEDS ORDERED: SODIUM CHLORIDE 0.9% 1000ML 1,000 ML IV PRN (09:32)
[2017-01-25] MEDS ORDERED: LACTATED RINGER'S 1000ML 500 ML IV PRN (09:32)
[2017-01-25] MEDS ORDERED: NALOXONE HCL INJ 1 MG in SODIUM CHLORIDE 0.9% 1000ML 1,000 ML IV PRN (09:32)
[2017-01-25] MEDS ORDERED: MoRPHine SULFATE PF 1 MG/ML 10 ML AMP/VIAL EPI PRN (09:45)
[2017-01-25] MEDS ORDERED: DiphenhydrAMINE HCL 50 MG/ML VIAL IV PRN (09:45)
[2017-01-25] MEDS ORDERED: NO NARCOTICS OR SEDATIVES SCH (09:45)
[2017-01-25] MEDS ORDERED: NALBUPHINE HCL INJ 10 MG/ML AMP IV PRN (09:45)
[2017-01-25] MEDS ORDERED: ONDANSETRON INJ 2 MG/ML 2 ML VIAL IV PRN (09:45)
[2017-01-25] MEDS ORDERED: NALOXONE HCL 0.4 MG/1 ML VIAL/CARP IV PRN (09:45)
[2017-01-25] MEDS ORDERED: EpHEDrine SULFATE INJ 50 MG/ML AMP IV PRN (09:45)
[2017-01-25] MEDS ORDERED: MEPERIDINE HCL 25 MG/ML CARP IV PRN (09:45)
--- NOTE | 2017-01-25 10:17 | OPERATIVE REPORT ---
DATE OF OPERATION: 01/25/2017 PREOPERATIVE DIAGNOSES: Intrauterine at 39 weeks, prior section. POSTOPERATIVE DIAGNOSIS: Same plus delivery of a viable female , 8 pounds 9 ounces, Apgars 9 and 9. PROCEDURE: Repeat low transverse cervical section. SURGEON: Dr. Kristie Alberts. TRANSMISSION ASSEMBLER: Dr. Jayden Ceballos. ANESTHESIA: Subarachnoid block. BLOOD LOSS: 600 mL. HISTORY OF PRESENT ILLNESS: The patient is a 41-year-old 2, para 1-0-0-1 white female, EDC of 01/28/2017 who presents at 39+ weeks for repeat section. Her first section was done because of arrest of descent following failed vacuum attempt. She is now requesting repeat section at this time. The infant is also in a transverse lie presentation. had been complicated by gestational diabetes on insulin, advanced maternal age, heart palpitations with the diagnosis of right fundal sofiya block. She understands the risks of procedure and is willing to proceed. GROSS FINDINGS: Uterus is gravid and consistent with a term in size. Bilateral ovaries and tubes are grossly normal. PROCEDURE: After the patient received adequate subarachnoid block, she was prepped and draped in usual sterile fashion. A low transverse skin incision was made through her prior scar and carried to the fascia with the same scalpel. The fascial incision was then extended with Luoie scissors. The edges were then grasped with Suad clamps and the underlying rectus muscles bluntly and sharply dissected off the overlying fascia. The rectus muscles were bluntly divided on the midline. The underlying peritoneum elevated and entered sharply. The bladder was then taken down off the anterior surface of the uterus, presenting part could not be palpated in the lower uterine segment. The infant was felt to be still in a transverse position. The lower uterine segment was entered with the scalpel and extended transversely. Membranes were ruptured for clear fluid. The was delivered from the double footling breech presentation. The rest of the infant delivered without difficulty. Mouth and nasopharynx were suctioned upon delivery. Cord was clamped and cut and the handed off to geriatric assistant in attendance. The placenta was then expressed intact with a 3-vessel cord. The uterus was exteriorized and covered with a clean lap sponge. The uterine cavity was explored and found to be free of any placental tissue or membranes. Uterus was then closed in 2 layers in a running locking imbricating fashion with 0 Monocryl. Hemostasis was noted to be excellent. The posterior cul-de-sac was irrigated with normal saline. The incision was examined once more and continued to have excellent hemostasis. The gutters were explored and found to be free of any clot or fluid. After the uterus had been placed back in the abdominal cavity the rectus muscles were closed on the midline with individual stitches of 0 Monocryl. The fascia was closed in a running fashion with 0 Vicryl. The adipose layer was then irrigated with normal saline and the skin edges reapproximated using a subcuticular stitch of 4-0 Vicryl. Urine was clear at the end of the case. Mother and infant were doing well after delivery. I attest to the content of the Intraoperative Record and any orders documented therein. Any exception s are noted below.
--- NOTE | 2017-01-25 10:24 | [facility] Post Operative Brief Note ---
Immediate Operative Summary Operative Date Jan 25, 2017. Pre-Operative Diagnosis REPEAT SECTION Post-Operative Diagnosis SAME Procedure(s) Performed LOW TRANSVERSE SECTION; DELIVERY OF LIVE FEMALE Surgeon DR BROWN Blaster Helper Surgeon(s) DR ZACARIAS Estimated Blood Loss 600CC Findings Viable female , APGARS 8/9. Normal-appearing uterus, fallopian tubes, and ovaries bilaterally. Fluids (cc crystalloids) 1500 Specimens CORD BLOOD PLACENTA-HOLD Drains Howell, clear urine Anesthesia Spinal Complication(s) None Disposition L&D
--- NOTE | 2017-01-25 10:48 | Anesthesiology Progress Note ---
Anesthesia Post Op Note Date & Time Jan 25, 2017 at 10:47 Notes Mental Status: alert / awake / arousable, participated in evaluation Pt Amnestic to Procedure: Yes Nausea / Vomiting: adequately controlled Pain: adequately controlled Airway Patency, RR, SpO2: stable & adequate BP & HR: stable & adequate Hydration State: stable & adequate Neuraxial Anesthesia: was administered, sensory block is resolving Anesthetic Complications: no major complications apparent
[2017-01-25] MEDS ORDERED: ACETAMINOPHEN 325 MG TAB PO SCH (12:00)
[2017-01-25] MEDS: SIMETHICONE 80 MG CHEW PO SCH ×3 (14:34→20:05)
[2017-01-25] MEDS: OXYTOCIN INJ 20 UNITS in LACTATED RINGER'S 1000ML 1,000 ML IV SCH ×2 (14:58→23:01)
[2017-01-25] MEDS ORDERED: ACETAMINOPHEN 325 MG TAB PO PRN (20:00)
[2017-01-25] MEDS ORDERED: DOCUSATE SODIUM 100 MG CAP PO SCH (20:00)
[2017-01-25] MEDS ORDERED: NURSING VERBAL MED ORDER ONE (20:15)
[2017-01-25] MEDS: DOCUSATE SODIUM 100 MG/10 ML UDC PO SCH (21:05)
[2017-01-26] MEDS ORDERED: ONDANSETRON INJ 2 MG/ML 2 ML VIAL IV PRN (02:15)
[2017-01-26] MEDS ORDERED: DC INTRASPINAL MORPHINE SCH (02:15)
[2017-01-26] MEDS ORDERED: PROMETHAZINE HCL INJ 25 MG in SODIUM CHLORIDE 0.9% 50ML 50 ML IV PRN (02:16)
[2017-01-26 04:00] VITALS: BP 100/62; PULSE 60; TEMP 36.6; O2SAT 99
[2017-01-26 06:38] LABS: BASO % 0.1 %; BASO ABS # 0.01 K/uL (0-0.2); COMPLETE YES; EOS % 0.5 %; HEMATOCRIT 27.1 % (37-47); IG% 0.4 %; LYMPH % 17.2 %; LYMPH ABS # 2.12 K/uL (1.2-3.4); MEAN CELL VOLUME 85.5 fL (80-100); MEAN CORPUSCULAR HEMOGLOBIN 28.7 pg (25-34); MEAN CORPUSCULAR HGB CONC 33.6 g/dl (32-36); MEAN PLATELET VOLUME 10.2 fL (7.4-10.4); NEUT % 74.8 %; PLATELET COUNT 217 K/uL (130-400); RED BLOOD COUNT 3.17 M/uL (4.2-5.4)
--- NOTE | 2017-01-26 07:01 | OB/GYN Progress Note ---
LUMBER HANDLER Progress Note Date of Service Jan 26, 2017. Subjective conversation w/ patient, conversation w/ family, physical exam, chart review, lab review Ambulation: limited ambulation (to bathroom this morning) Passing Gas: Yes Diet Tolerance: Regular Diet Lochia: Small Feeding Type: Breast Feeding Pain: Low abd cramping with nursing and ambulation Notes: Howell cath out ~0630 this morning. Review of Systems Constitutional: No fever, No chills Respiratory: No cough, No shortness of breath Cardiac: No chest pain Abdomen: No nausea, No vomiting, No diarrhea Female : + see HPI Objective Vital Signs Date Time Temp Pulse Resp B/P (MAP) Pulse Ox O2 Delivery O2 Flow Rate FiO2 01/26/17 04:00 36.6 60 18 100/62 (75) 99 Room Air 01/25/17 23:30 99 Room Air 01/25/17 23:30 37.0 56 20 90/61 (71) 99 Room Air 01/25/17 23:00 18 99 01/25/17 21:30 18 95 01/25/17 20:30 16 96 01/25/17 19:30 18 95 01/25/17 19:20 36.6 48 18 96/59 (71) 97 Room Air 01/25/17 18:30 18 97 01/25/17 17:30 18 97 01/25/17 16:30 18 98 01/25/17 15:30 18 96 01/25/17 15:15 96 Room Air 01/25/17 15:15 36.9 47 18 96/59 01/25/17 14:30 16 99 01/25/17 13:30 64 98 01/25/17 12:30 16 99 01/25/17 11:30 100 Room Air 01/25/17 11:30 36.3 62 16 99/65 01/25/17 11:30 36.3 62 16 99/65 (76) 100 Room Air 01/25/17 11:30 Room Air 01/25/17 11:30 16 100 Physical Exam General Appearance: WELL-APPEARING, WD/WN, NO APPARENT DISTRESS Respiratory/Chest: lungs clear, normal breath sounds Cardiovascular: + bradycardia (regular, borderlilne bradycardia) Abdomen: normal bowel sounds, non tender, soft Fundus: Firm, Tender (appropriate fundal ttp), Relation to Umbilicus (at umbilicus) Incision Description: Clean, Dry & Intact (dermabond, no present erythema or d/ c ) Extremities: normal range of motion, non-tender, no pedal edema, no calf tenderness Laboratory Results Last 24 Hours Test 01/25/17 07:13 01/25/17 09:16 01/25/17 13:13 01/26/17 06:08 Bedside Glucose 102 mg/dl 102 mg/dl 99 mg/dl White Blood Count 12.30 K/uL Red Blood Count 3.17 M/uL Hemoglobin 9.1 g/dL Hematocrit 27.1 % Mean Corpuscular Volume 85.5 fL Mean Corpuscular Hemoglobin 28.7 pg Mean Corpuscular Hemoglobin Concent 33.6 g/dl Platelet Count 217 K/uL Mean Platelet Volume 10.2 fL Neutrophils (%) (Auto) 74.8 % Lymphocytes (%) (Auto) 17.2 % Monocytes (%) (Auto) 7.0 % Eosinophils (%) (Auto) 0.5 % Basophils (%) (Auto) 0.1 % Neutrophils # (Auto) 9.20 K/uL Lymphocytes # (Auto) 2.12 K/uL Monocytes # (Auto) 0.86 K/uL Eosinophils # (Auto) 0.06 K/uL Basophils # (Auto) 0.01 K/uL RDW Standard Deviation 44.7 fL RDW Coefficient of Variation 14.3 % Immature Granulocyte % (Auto) 0.4 % Immature Granulocyte # (Auto) 0.05 K/uL Assessment and Plan Post-, Post-Op Day Number: 1 Continue Routine Care: Resident Physician Supervision Note: I interviewed and examined the patient. Discussed with Dr. Ceballos and agree with findings and plan as documented in the note. Any exceptions or clarifications are listed here: [None] Documented By: Kristie Hinojosa 41yo s/p scheduled (hx prior femoral neuropathy s/p c/s), now PPD #1. - Blood type O positive. GBS negative. Rubella immune. - Vital signs reviewed and stable. - S/p spinal anesthesia. Pain controlled with PO tylenol as well thus far. - No distal leg swelling or tenderness on calf palpation. Encourage ambulation. - Encourage breast feeding. - Hemoglobin prepartum 11.0, post-delivery 9.1. Vaginal bleeding improving. Continue to monitor clinically. - Howell out this am, pending due to void. - Continue routine post care. - Pt agreed with above plan, all current questions answered. Facundo Ceballos MD, PGY1 Incident Engineer Tracking Resident Involvement: Resident Care Provided Care Provided: OB Delivery (morning rounds)
[2017-01-26 08:00] VITALS: BP 97/62; PULSE 56; TEMP 36.8; O2SAT 95
[2017-01-26] MEDS ORDERED: FERROUS SULFATE 325 MG TAB PO SCH (08:00)
[2017-01-26] MEDS: SIMETHICONE 80 MG CHEW PO SCH ×4 (08:56→20:11)
[2017-01-26] MEDS: DOCUSATE SODIUM 100 MG/10 ML UDC PO SCH ×2 (08:56→20:00)
[2017-01-26] MEDS: ACETAMINOPHEN 325 MG TAB PO PRN ×2 (08:57→15:14)
[2017-01-26] MEDS: FERROUS SULFATE 325 MG/7.4 ML UDP PO SCH (09:45)
[2017-01-26] MEDS: IBUPROFEN 600 MG TAB PO PRN (16:02)
[2017-01-26 16:20] VITALS: BP 106/69; PULSE 66; TEMP 36.8
[2017-01-26] MEDS: OXYCODONE/ACETAMINOPHEN 5-325 TAB PO PRN (20:57)
[2017-01-26] MEDS ORDERED: BISACODYL 5 MG TABEC PO ONE (22:00)
[2017-01-26 23:50] VITALS: BP 99/62; PULSE 60; TEMP 36.8; O2SAT 95
[2017-01-27] MEDS: OXYCODONE/ACETAMINOPHEN 5-325 TAB PO PRN ×5 (03:03→23:19)
[2017-01-27] MEDS ORDERED: BISACODYL 10 MG SUPP PR PRN (07:00)
[2017-01-27 07:05] LABS: HEMATOCRIT 28.9 % (37-47)
[2017-01-27] MEDS: FERROUS SULFATE 325 MG/7.4 ML UDP PO SCH (07:24)
[2017-01-27] MEDS: SIMETHICONE 80 MG CHEW PO SCH ×4 (07:24→20:29)
[2017-01-27] MEDS: DOCUSATE SODIUM 100 MG/10 ML UDC PO SCH ×2 (07:28→19:53)
--- NOTE | 2017-01-27 07:54 | Progress Note ---
Subjective Jan 27, 2017. Subjective conversation w/ patient, physical exam Ambulation: ambulating normally Feeding Type: Breast Feeding Objective Vital Signs Date Time Temp Pulse Resp B/P (MAP) Pulse Ox O2 Delivery O2 Flow Rate FiO2 01/26/17 23:50 95 Room Air 01/26/17 23:50 36.8 60 16 99/62 (74) 95 Room Air 01/26/17 16:20 Room Air 01/26/17 16:20 36.8 66 20 106/69 (81) Room Air 01/26/17 08:00 36.8 56 16 97/62 (74) 95 Room Air 01/26/17 08:00 95 Room Air Physical Exam General Appearance: WELL-APPEARING, NO APPARENT DISTRESS Respiratory/Chest: lungs clear Cardiovascular: regular rate, rhythm Incision Description: Clean, Dry & Intact Extremities: no calf tenderness Laboratory Results Last 24 Hours Test 01/27/17 06:55 Hemoglobin 9.7 g/dL Hematocrit 28.9 % Assessment and Plan Problem List Medical Problems: (1) Intermittent palpitations Status: Acute (2) Lightheaded Status: Acute (3) Near syncope Status: Acute (4) Subchorionic bleed Status: Acute (5) Vaginal bleeding in patient at less than 20 weeks gestation Status: Acute Post-, Post-Op Day#: 2 Continue Routine Care: - patient had been reluctant to take the percocet - agreed to take the pain medication and doing well - ambulate, routine care
[2017-01-27] MEDS ORDERED: OXYC-57 PO (07:55)
[2017-01-27] MEDS ORDERED: MTR600X PO (07:55)
--- NOTE | 2017-01-27 07:56 | Discharge Instructions ---
Discharge Instructions Date of Service Jan 27, 2017. Admission Reason for Admission: Previous Section Discharge Discharge Diagnosis / Problem: same Discharge Goals Goal(s): Routine recovery after Medications Continue Dispensed Medications: supercream, dermaplast Activity Recommendations Activity Limitations: as noted below . Instructions / Follow-Up Instructions / Follow-Up ACTIVITY RECOMMENDATIONS: * Gradual return to full activity over the next 2-3 weeks. * No lifting - nothing heavier than baby over the next 2-3 weeks. * Do not engage in vigorous exercise, sexual activity or sports until cleared by your physician. * Do not drive or operate any motorized equipment until cleared by your physician. * You may shower/bathe daily. MEDICATIONS: For discomfort or pain, you may use Acetaminophen (Tylenol), Ibuprofen (Advil), or Naproxen (Aleve) following the package directions. For constipation you may use Colace following the package directions. BREAST CARE: If you are not breast feeding: * Wear a supportive bra 24 hours a day for one to two weeks. * Avoid stimulating your breasts and nipples as much as possible during the first few weeks after delivery. * When taking a shower, have the warm water hit your back, not breasts. * When your breasts feel full, apply ice packs. Usually three to four times a day helps ease the discomfort. * Take a mild pain medication (Tylenol / Motrin) when you are uncomfortable. If breast feeding: * Use breast milk to lubricate nipples. Lansinoh cream may be used for sore nipples. You do not need to remove cream prior to breast feeding. If using a different brand of cream, check the label for directions regarding removal of cream prior to nursing. * Wear a supportive bra. * If having problems with breasts or breast feeding, call a showroom consultant or your health care provider. SPECIAL CARE INSTRUCTIONS: When you are discharged from the hospital, it is important for you to follow the instructions listed below: * During the first week at home, you should be able to care for yourself and your baby. In addition, the usual light household activities are encouraged. * Limit your activities to the way you feel. Do not try to clean the house or move furniture. Be sensible. * If you actively engage in sports and have done so up until the time of your delivery, you may resume these activities as soon as you feel able. This may take up to one month or even longer. Use good judgment. * Continue to take your vitamins for at least six weeks after the of your baby. * Your diet need not be limited unless you were on a special diet before your delivery. Breast-feeding mothers need around 2500 calories per day and at least 64-80 ounces of fluid per day (8 to 10 glasses). * You should eat foods from the four major food groups. Crash diets or fad diets are to be avoided. Eating lean meats, fresh fruits and vegetables, low-fat dairy products, high fiber foods and a regular exercise program, will help you get back to your pre- weight without putting your health at risk. * Constipation is sometimes a problem after delivery. Take a mild laxative as needed. If breast feeding, Milk of Magnesia is acceptable to use. You may use a suppository or Fleets enema. * A daily shower or tub bath is suggested. Wash incision daily with warm soapy water and pat dry. It doesn't need to be covered unless drainage is present. * A bloody vaginal discharge will usually continue until around four weeks . A small amount of bleeding may continue for as long as six weeks. Vaginal discharge changes from the bright red bleeding after delivery to pink then brownish and finally yellowish-pink before becoming white and disappearing. * Bleeding may increase with activity. Your first period may come in 4-8 weeks. If you are breast feeding, your period may be delayed even longer. * Osnabrock (sex) can begin whenever both you and your partner feel comfortable and do not have any form of genital infection. It is recommended that you wait at least six weeks for internal and external healing to occur. If you have questions, please talk to your health care practitioner. A condom should be used to prevent infection and . * Foreplay, gentle intercourse and lubrication is very important the first several times to prevent pain. A water-based lubricant such as K-Y jelly or Astroglide may be used. * If you have RH negative blood and your baby is RH positive, you will receive RHOGAM by injection prior to discharge. The nurse will give you a card to keep with you that has the date and place that you received RHOGAM after delivery. * During your care, you had a Rubella screen done to check for the presence of rubella antibodies in your blood. If your test was negative, you will receive a Rubella vaccine prior to discharge. This vaccine may cause a fever, soreness at the injection site and flu-like symptoms. If these symptoms persist, notify your health care practitioner. is not advised for one month after a Rubella vaccine. * Verbalizes understanding of car seat law as reviewed with patient nursing. * Car Seat hand-out given and reviewed with patient by nursing. * Shaken baby information reviewed with patient by nursing. Call you doctor if: * Heavy bleeding (saturating several pads an hour) or passing clots the size of your fist. * A fever >101 degrees F (38.3 degrees C) on two occasions four hours apart and /or chills. * Unusual pain in the pelvic or vaginal areas. * Call the doctor for any increased redness, drainage or swelling around the incision and any pain unrelieved by prescribed pain medication. * "Baby Blues" lasting longer than two weeks. If you have any questions or concerns, call your health care practitioner at . FOLLOW UP VISIT: * Please call the office at to schedule a 6 week examination. It is important you keep this appointment. It is important for you to make arrangements for either yearly or twice yearly check-ups thereafter. Current Hospital Diet Patient's current hospital diet: Regular OB Diet Discharge Diet Recommended Diet: Regular OB Diet Procedures Procedures Performed: LOW TRANSVERSE SECTION; DELIVERY OF LIVE FEMALE Pending Studies Studies pending at discharge: no Medical Emergencies . Who to Call and When: Medical Emergencies: If at any time you feel your situation is an emergency, please call 911 immediately. . Non-Emergent Contact Non-Emergency issues call your: Special Distribution Clerk Call Non-Emergent contact if: temperature is above 100.5, your pain is not controlled, your pain is worsening, wound has increased drainage, wound has increased redness . . "Provider Documentation" section prepared by Vaughn Kennedy. . VTE Core Measure Inpt VTE Proph given/why not?: SCD's [place] Drug Monitoring Program Search Results: no issues identified
[2017-01-27 08:00] VITALS: BP 119/66; PULSE 64; TEMP 36.8
[2017-01-27] MEDS: IBUPROFEN 600 MG TAB PO PRN ×3 (11:37→23:20)
[2017-01-27 15:45] VITALS: BP 115/77; TEMP 36.9; O2SAT 99
[2017-01-28] VITALS: BP 107/67; PULSE 57; TEMP 36.7
[2017-01-28] MEDS: OXYCODONE/ACETAMINOPHEN 5-325 TAB PO PRN ×3 (04:56→19:40)
[2017-01-28] MEDS: IBUPROFEN 600 MG TAB PO PRN ×3 (04:57→19:40)
--- NOTE | 2017-01-28 06:42 | OB/GYN Progress Note ---
FINISHER DENTURE Progress Note Date of Service Jan 28, 2017. Subjective conversation w/ patient, physical exam, chart review, lab review Ambulation: ambulating normally Voiding: no voiding problems Passing Gas: Yes Diet Tolerance: Regular Diet Lochia: Small Feeding Type: Breast Feeding Pain: Well-controlled with PO meds per pt Notes: Says some cramping and mild pain at incision site. Review of Systems Constitutional: No fever, No chills Respiratory: No cough, No shortness of breath Cardiac: No chest pain Abdomen: No nausea, No vomiting, No diarrhea Female : No dysuria Objective Vital Signs Date Time Temp Pulse Resp B/P (MAP) Pulse Ox O2 Delivery O2 Flow Rate FiO2 01/28/17 00:00 Room Air 01/28/17 00:00 36.7 57 18 107/67 (80) Room Air 01/27/17 15:45 99 Room Air 01/27/17 15:45 36.9 18 115/77 (90) 99 Room Air 01/27/17 08:00 Room Air 01/27/17 08:00 36.8 64 16 119/66 (83) Room Air Physical Exam General Appearance: WELL-APPEARING, WD/WN, NO APPARENT DISTRESS Respiratory/Chest: lungs clear, normal breath sounds Cardiovascular: regular rate, rhythm Abdomen: normal bowel sounds, non tender, soft Fundus: Firm, Non-Tender, Relation to Umbilicus (approx one down) Incision Description: Clean, Dry & Intact (no surrounding erythema or d/c ) Extremities: normal range of motion, non-tender, no pedal edema, no calf tenderness Laboratory Results Last 24 Hours Test 01/27/17 06:55 Hemoglobin 9.7 g/dL Hematocrit 28.9 % Assessment and Plan Post-, Post-Op Day Number: 3 Continue Routine Care: 41yo s/p scheduled repeat (prior hx post- femoral neuropathy) now PPD #3. - Blood type O pos. GBS negative. Rubella immune. - Vital signs reviewed and stable. - Pain controlled with motrin and percocet. - Pt has hx multiple allergies including red dye. Plan for pt to take her home PNV and Benadryl. - No leg swelling or tenderness on calf palpation. Encourage ambulation. - Encourage breast feeding. - Hemoglobin pre-delivery 11.0, post-delivery 9.1 then 9.7. Continue to monitor clinically. - Continue routine post delivery care. Plan for salesforce consultant to speak with pt this morning. - Pt agreed with above plan, all current questions answered. Facundo Ceballos MD, PGY1 Systems Planner Physician Supervision Note: I interviewed and examined the patient. Discussed with Dr. Ceballos and agree with findings and plan as documented in the note. Any exceptions or clarifications are listed here: [None] Documented By: Vaughn Kennedy Resident Tracking Resident Involvement: Resident Care Provided Care Provided: OB Delivery (morning rounds)
[2017-01-28 07:40] VITALS: BP 110/73; PULSE 65; TEMP 36.7; O2SAT 96
[2017-01-28] MEDS: SIMETHICONE 80 MG CHEW PO SCH ×4 (09:02→19:41)
[2017-01-28] MEDS: FERROUS SULFATE 325 MG/7.4 ML UDP PO SCH (09:03)
[2017-01-28] MEDS: DOCUSATE SODIUM 100 MG/10 ML UDC PO SCH ×2 (09:04→19:43)
[2017-01-28 15:30] VITALS: BP 126/76; PULSE 65; TEMP 36.8; O2SAT 98
[2017-01-28] MEDS ORDERED: MISC-696 ×2 (16:27→16:29)
[2017-01-29] MEDS: OXYCODONE/ACETAMINOPHEN 5-325 TAB PO PRN ×3 (00:40→11:17)
[2017-01-29] MEDS: IBUPROFEN 600 MG TAB PO PRN ×3 (00:40→11:16)
--- NOTE | 2017-01-29 07:15 | OB/GYN Progress Note ---
OBSTETRICS TECH Progress Note Date of Service Jan 29, 2017. Subjective conversation w/ patient, physical exam, chart review, lab review Ambulation: ambulating normally Voiding: no voiding problems Passing Gas: Yes Diet Tolerance: Regular Diet Lochia: Small Feeding Type: Breast Feeding Pain: Some crampingat incision site Review of Systems Constitutional: No fever, No chills Respiratory: No cough, No shortness of breath Cardiac: No chest pain Abdomen: No nausea, No vomiting, No diarrhea Female : No dysuria Objective Vital Signs Date Time Temp Pulse Resp B/P (MAP) Pulse Ox O2 Delivery O2 Flow Rate FiO2 01/28/17 15:30 Room Air 01/28/17 15:30 36.8 65 20 126/76 (93) 98 Room Air 01/28/17 07:40 36.7 65 20 110/73 (85) 96 Room Air 01/28/17 07:40 Room Air Physical Exam General Appearance: WELL-APPEARING, WD/WN, NO APPARENT DISTRESS Respiratory/Chest: lungs clear, normal breath sounds Cardiovascular: regular rate, rhythm Abdomen: normal bowel sounds, non tender, soft Fundus: Firm, Tender (minimal, appropriate), Relation to Umbilicus (approx two down) Incision Description: Clean, Dry & Intact (no erythema, d/c, notable swelling) Extremities: normal range of motion, non-tender, no pedal edema, no calf tenderness Assessment and Plan Post-, Post-Op Day Number: 4 Continue Routine Care: 41yo s/p scheduled repeat (prior hx post- femoral neuropathy) now PPD #4. - Blood type O pos. GBS negative. Rubella immune. - Vital signs reviewed and stable. - Pain controlled with motrin and percocet. - Pt has hx multiple allergies including red dye. Plan for pt to take her home PNV and Benadryl. - No leg swelling or tenderness on calf palpation. Encourage ambulation. - Encourage breast feeding. Rxed breast pump for the same. - Hemoglobin pre-delivery 11.0, post-delivery 9.1 then 9.7. Continue to monitor clinically. - Continue routine post delivery care. - Pt agreed with above plan, all current questions answered. Facundo Ceballos MD, PGY1 Fence Post Driver Physician Supervision Note: I interviewed and examined the patient. Discussed with Dr. Ceballos and agree with findings and plan as documented in the note. Any exceptions or clarifications are listed here: [None] Documented By: Stephanie Patricio Resident Tracking Resident Involvement: Resident Care Provided Care Provided: OB Delivery (morning rounds)
[2017-01-29 08:40] VITALS: BP 112/64; PULSE 78; TEMP 36.5; O2SAT 99
[2017-01-29] MEDS: SIMETHICONE 80 MG CHEW PO SCH (09:03)
[2017-01-29] MEDS: DOCUSATE SODIUM 100 MG/10 ML UDC PO SCH (09:04)
[2017-01-29] MEDS: FERROUS SULFATE 325 MG/7.4 ML UDP PO SCH (09:04)
[2017-01-29 12:00] VITALS: BP_DIAS 64; PULSE 78; TEMP 36.5
--- NOTE | 2017-01-30 23:09 | DISCHARGE SUMMARY ---
PRINCIPAL DIAGNOSIS: Intrauterine at term, prior section for arrest of descent. PRINCIPAL PROCEDURE: Repeat low transverse cervical section. HISTORY OF PRESENT ILLNESS: The patient is a 41-year-old 2, para 1-0-0-1 white female, EDC of 01/28/2017, who presented on 01/25/2017 for repeat section. Her had been complicated by gestational diabetes, controlled on insulin, advanced maternal age, heart palpitations and the diagnosis of a right bundle-branch block. She underwent a repeat section without complications. She did have some lightheadedness postoperatively and during her section; however, by her first postop day, she was able to dangle at the side of the bed without symptoms, was tolerating p.o. well, no nausea or vomiting and she had adequate pain relief with Motrin and then adding Percocet as needed. She was afebrile throughout her hospital stay. She was voiding without difficulty and ambulating without difficulty. Hemoglobin on admission was 11.70, hematocrit 33.8, first postop day hemoglobin 9.1, hematocrit 27.1, second postop day hemoglobin 9.7, hematocrit of 28.9. She was sent home in good condition with prescriptions for both Motrin 600 mg p.o. q. 4 hours p.r.n. pain, Percocet 1/2 to 1 tablet of Percocet every 4-6 hours as needed for pain. She is to be seen in the office in 6 weeks for a followup visit. She is to call for temperature of 101 degrees or higher, heavy vaginal bleeding, burning with urination, increased redness, drainage or pain from her incision, calf tenderness or any other concerns.
== END 2017-01-29 12:35 | disposition home or self-care (01) | DRG 765 ==
LOC: C.LD 06:01 → EDSTATUS 09:00 → C.OBG 12:02
PROVIDERS: ADMIT Obstetrics & Gynecology; ATTEND Obstetrics & Gynecology
PROC: 10D00Z1 Extraction of Products of Conception, Low, Open Approach (ICD-10-PCS; principal; 2017-01-25 07:30)
DX: O34.211 Maternal care for low transverse scar from previous cesarean delivery (principal); O99.42 Diseases of the circulatory system complicating childbirth; I45.10 Unspecified right bundle-branch block; O32.2XX0 Maternal care for transverse and oblique lie, not applicable or unspecified; O09.523 Supervision of elderly multigravida, third trimester; O24.424 Gestational diabetes mellitus in childbirth, insulin controlled; Z37.0 Single live birth; Z3A.39 39 weeks gestation of pregnancy

== ENCOUNTER 2022-09-07 10:12 | Observation (INO) ==
--- NOTE | 2022-09-07 10:45 | Emergency Department Note ---
History of Present Illness General Chief complaint: Abdominal Pain Stated complaint: PRESSURE IN ABDOMEN Time Seen by Provider: 09/07/22 10:31 History of Present Illness This is a 47-year-old female that presents to the emergency department via private vehicle accompanied by with complaints of "pressure in abdomen". Patient notes that she developed a sore throat on August 12 and has had intermittent sore throat since that time. She also notes as of recent now some upper abdominal quadrant discomfort. No known trauma or injury. Patient notes that the pain seems to come and go. She also notes feeling tired. She was started on omeprazole for suspected gastritis at the local urgent care but notes that this medicine made her feel "weird and goofy". She also notes that when she wears jeans she will feel a prominence to the periumbilical region. Patient notes intermittent nausea. No fevers, chest pain, shortness of breath or vomiting. Home Medications Medication Instructions Recorded Confirmed Type epinephrine 0.3 mg/0.3 mL 0.3 ml IM UD PRN Allergic Reaction 02/22/21 09/07/22 History injection, auto-injector ascorbic acid (vitamin C) 500 mg 500 mg PO BID 09/07/22 09/07/22 History tablet (Vitamin C) ergocalciferol (vitamin D2) 1,250 1,250 mcg PO DAILY 09/07/22 09/07/22 History mcg (50,000 unit) capsule (Vitamin D2) omeprazole 40 mg capsule,delayed 40 mg PO DAILY 09/07/22 09/07/22 History release Allergies Allergy/AdvReac Type Severity Reaction Status Date / Time cefazolin Allergy Severe HIVES Verified 09/07/22 14:34 ciprofloxacin [Cipro] Allergy Severe TROUBLE Verified 09/07/22 14:34 BREATHING Iodinated Contrast Media Allergy Severe HIVES,SOB Verified 09/07/22 14:34 red dye Allergy Severe RED #40 = Verified 09/07/22 14:34 HIVES ANAPHYLAXIS almond Allergy Intermediate HIVES Verified 09/07/22 14:34 erythromycin base Allergy Intermediate HIVES Verified 09/07/22 14:34 guaifenesin Allergy Intermediate HIVES Verified 09/07/22 14:34 meglumine antimonate Allergy Intermediate HIVES Verified 09/07/22 14:34 phenylephrine Allergy Intermediate HIVES Verified 09/07/22 14:34 shellfish derived Allergy Intermediate HIVES Verified 09/07/22 14:34 tree nut Allergy Intermediate HIVES Verified 09/07/22 14:34 codeine Allergy Mild RED AND Verified 09/07/22 14:34 NAUSEA AND HIVES AND FEELS LIKE PASS OUT aspirin Allergy Unknown HIVES; Verified 09/07/22 14:34 PATIENT TOLERATES IBUPROFEN bee venom protein (honey bee) Allergy Unknown swelling Verified 09/07/22 14:34 corn Allergy Unknown HIVES Verified 09/07/22 14:34 fructose Allergy Unknown HIVES Verified 09/07/22 14:34 wheat Allergy Unknown HIVES Verified 09/07/22 14:34 Past Med/Surg History Medical History Near syncope Subchorionic bleed Vaginal bleeding in patient at less than 20 weeks gestation Surgical History History of delivery Social History Smoking Status: Never smoker Preferred Language: Telugu marital status: Current Living Situation: Spouse and Family current occupational status: employed Feels Safe at Home: Yes Review of Systems A total of 10 systems reviewed and were otherwise negative Physical Exam Vital Signs Vital Signs - 24 hr 09/07/22 10:23 09/07/22 11:57 Temperature 36.7 C 36.8 C Temperature Source Skin Oral Pulse Rate 90 Pulse Rate [Finger] 68 Pulse Rhythm Regular Pulse Strength Normal Respiratory Rate 20 16 Respiratory Effort / Characteristics Non-Labored Spontaneous Respiratory Depth Normal Respiratory Pattern Regular Blood Pressure 126/79 Blood Pressure [Right Radial Artery] 127/75 Blood Pressure Mean 94 Blood Pressure Mean [Right Radial Artery] 92 Pulse Oximetry 100 97 Oxygen Delivery Method Room Air Room Air Sepsis Recent Fever Within 48 Hours No Sepsis New/Unexplained Change in Mental Status N/A Sepsis Action Taken by Nursing No Action Required VITAL SIGNS - Vital signs and triage nursing notes were reviewed. Stable and afebrile. GENERAL - 47-year-old female appearing her stated age who is in no acute distress. Communicates well with provider and answers questions appropriately. SKIN - Without rashes. No meningeal or petechial rash. HEAD - NC/AT. EYES - PERRL with EOMI bilaterally. Sclera anicteric. EARS - No deformities of external structures noted on gross examination bilaterally. No pain elicited with palpation of the tragus bilaterally. External auditory canals without discharge or otorrhea. Tympanic membranes pearly fernandez without retraction or bulging. No fluid or purulent material visualized behind the TM. Handle of malleus, umbo, cone of light, pars tensa/flaccid all easily v isualized. NOSE - Midline and without cyanosis. No epistaxis or purulent drainage noted. Septum midline without deviation or septal hematoma noted. MOUTH/OROPHARYNX - Without perioral cyanosis. Buccal mucosa pink and moist and without leukoplakia. Tongue midline with equal elevation of palate bilaterally. No tonsillar hypertrophy, erythema, or exudates noted. Good dentition noted. No drooling, stridor, trismus, wheezing or tripoding. Normal phonation. NECK - Neck with FROM. Supple to palpation. No lymphadenopathy noted. No nuchal rigidity. LUNGS - Chest wall symmetric without accessory muscle use, intercostals retractions, or central cyanosis. Normal vesicular breath sounds CTA B/L. No whe ezes, rales, or rhonchi appreciated. CARDIAC - RRR with S1/S2. No murmur, rubs, or gallops appreciated. ABDOMEN - Abdominal contour normal without pulsations or visible masses. BS normoactive all four quadrants. Mild upper abdominal quadrant tenderness to palpation. No guarding or rigidity. No palpable masses, hepatosplenomegaly, or ascites noted. EXTREMITIES - No clubbing or peripheral cyanosis. +5/5 strength noted in UE/LE bilaterally. NEUROLOGIC - Cranial nerves II through XII grossly intact. PSYCH - A&O, and cooperates fully with examiner. Pt is very pleasant and interacts well with examiner. Medical Decision Making Laboratory Data 09/07/22 11:10 09/07/22 11:10 Lab Results 09/07/22 09/07/22 09/07/22 Range/Units 10:40 11:10 11:10 WBC 41.53 H* (4.8-10.8) K/ul RBC 4.03 L (4.20-5.40) M/uL Hgb 12.0 (12.0-16.0) g/dl Hct 36.8 L (37.0-47.0) % MCV 91.3 (80.0-100.0) fL MCH 29.8 (25.0-34.0) pg MCHC 32.6 (32.0-36.0) g/dL RDW Std Deviation 50.5 H (36.4-46.3) fL RDW Coeff of Bear 15.3 H (11.5-14.5) % Plt Count 604 H (130-400) K/uL MPV 10.1 (9.4-12.4) fL Absolute Nucleated RBC 0.02 (0-0.12) K/uL Neutrophils % (Manual) 69 % Lymphocytes % (Manual) 14 % Monocytes % (Manual) 1 % Eosinophils % (Manual) 1 % Basophils % (Manual) 1 % Metamyelocytes % (Man) 1 % Myelocytes % (Man) 13 % RBC Morphology Unremarkable ESR (0-20) mm/hr Sodium 139 (136-145) mmol/L Potassium 4.2 (3.5-5.1) mmol/L Chloride 107 (98-107) mmol/L Carbon Dioxide 28 (21-32) mmol/L Anion Gap 4 (3-11) BUN 15 (6-23) mg/dl Creatinine 0.82 (0.6-1.2) mg/dl Est Cr Clr Drug Dosing 84.1 ml/min Est GFR ( Amer) 97.4 ml/min Est GFR (Non-Af Amer) 84.0 ml/min BUN/Creatinine Ratio 18.3 (10-20) Glucose 91 (70-99(Fasting)) mg/dl Calcium 9.5 (8.5-10.1) mg/dl Magnesium 2.3 (1.7-2.4) mg/dl Total Bilirubin 0.5 (0.2-1.0) mg/dl AST 51 H (13-39) U/L ALT 67 H (7-52) U/L Alkaline Phosphatase 95 (34-104) U/L Troponin I High Sens 4.2 (0-14) pg/ml C-Reactive Protein 0.52 H (0-0.5) mg/dl Total Protein 7.2 (6.0-8.3) gm/dl Albumin 4.4 (3.4-5.0) gm/dl Globulin 2.8 (2.5-4.0) gm/dl Albumin/Globulin Ratio 1.6 (0.9-2) Lipase 17 (11-82) U/L TSH (0.300-4.500) uIu/ml HCG, Qual (Negative) Urine Color Urine Appearance (Clear) Urine pH (4.5-7.5) Ur Specific Valley (1.000-1.030) Urine Protein (Negative) Urine Glucose (UA) (Negative) Urine Ketones (Negative) Urine Blood (Negative) Urine Nitrite (Negative) Urine Bilirubin (Negative) Urine Urobilinogen (Negative) Ur Leukocyte Esterase (Negative) Urine WBC (Auto) (0-5) /hpf Urine RBC (Auto) (0-4) /hpf U Hyaline Cast (Auto) (0-5) /lpf U Epithel Cells (Auto) (0-5) /lpf Urine Bacteria (Auto) (Negative) Lyme Disease IgG Ab (Negative) Lyme Disease IgM Ab (Negative) Monoscreen (Negative) SARS-CoV-2, RNA, NAAT (NEGATIVE) Group A Strep (PCR) NOT DETECTED (NotDetected) 09/07/22 09/07/22 09/07/22 Range/Units 11:10 11:10 11:10 WBC (4.8-10.8) K/ul RBC (4.20-5.40) M/uL Hgb (12.0-16.0) g/dl Hct (37.0-47.0) % MCV (80.0-100.0) fL MCH (25.0-34.0) pg MCHC (32.0-36.0) g/dL RDW Std Deviation (36.4-46.3) fL RDW Coeff of Bear (11.5-14.5) % Plt Count (130-400) K/uL MPV (9.4-12.4) fL Absolute Nucleated RBC (0-0.12) K/uL Neutrophils % (Manual) % Lymphocytes % (Manual) % Monocytes % (Manual) % Eosinophils % (Manual) % Basophils % (Manual) % Metamyelocytes % (Man) % Myelocytes % (Man) % RBC Morphology ESR 12 (0-20) mm/hr Sodium (136-145) mmol/L Potassium (3.5-5.1) mmol/L Chloride (98-107) mmol/L Carbon Dioxide (21-32) mmol/L Anion Gap (3-11) BUN (6-23) mg/dl Creatinine (0.6-1.2) mg/dl Est Cr Clr Drug Dosing ml/min Est GFR ( Amer) ml/min Est GFR (Non-Af Amer) ml/min BUN/Creatinine Ratio (10-20) Glucose (70-99(Fasting)) mg/dl Calcium (8.5-10.1) mg/dl Magnesium (1.7-2.4) mg/dl Total Bilirubin (0.2-1.0) mg/dl AST (13-39) U/L ALT (7-52) U/L Alkaline Phosphatase (34-104) U/L Troponin I High Sens (0-14) pg/ml C-Reactive Protein (0-0.5) mg/dl Total Protein (6.0-8.3) gm/dl Albumin (3.4-5.0) gm/dl Globulin (2.5-4.0) gm/dl Albumin/Globulin Ratio (0.9-2) Lipase (11-82) U/L TSH (0.300-4.500) uIu/ml HCG, Qual Negative (Negative) Urine Color Urine Appearance (Clear) Urine pH (4.5-7.5) Ur Specific Valley (1.000-1.030) Urine Protein (Negative) Urine Glucose (UA) (Negative) Urine Ketones (Negative) Urine Blood (Negative) Urine Nitrite (Negative) Urine Bilirubin (Negative) Urine Urobilinogen (Negative) Ur Leukocyte Esterase (Negative) Urine WBC (Auto) (0-5) /hpf Urine RBC (Auto) (0-4) /hpf U Hyaline Cast (Auto) (0-5) /lpf U Epithel Cells (Auto) (0-5) /lpf Urine Bacteria (Auto) (Negative) Lyme Disease IgG Ab Negative (Negative) Lyme Disease IgM Ab Negative (Negative) Monoscreen Negative (Negative) SARS-CoV-2, RNA, NAAT (NEGATIVE) Group A Strep (PCR) (NotDetected) 09/07/22 09/07/22 09/07/22 Range/Units 11:14 14:54 15:32 WBC (4.8-10.8) K/ul RBC (4.20-5.40) M/uL Hgb (12.0-16.0) g/dl Hct (37.0-47.0) % MCV (80.0-100.0) fL MCH (25.0-34.0) pg MCHC (32.0-36.0) g/dL RDW Std Deviation (36.4-46.3) fL RDW Coeff of Bear (11.5-14.5) % Plt Count (130-400) K/uL MPV (9.4-12.4) fL Absolute Nucleated RBC (0-0.12) K/uL Neutrophils % (Manual) % Lymphocytes % (Manual) % Monocytes % (Manual) % Eosinophils % (Manual) % Basophils % (Manual) % Metamyelocytes % (Man) % Myelocytes % (Man) % RBC Morphology ESR (0-20) mm/hr Sodium (136-145) mmol/L Potassium (3.5-5.1) mmol/L Chloride (98-107) mmol/L Carbon Dioxide (21-32) mmol/L Anion Gap (3-11) BUN (6-23) mg/dl Creatinine (0.6-1.2) mg/dl Est Cr Clr Drug Dosing ml/min Est GFR ( Amer) ml/min Est GFR (Non-Af Amer) ml/min BUN/Creatinine Ratio (10-20) Glucose (70-99(Fasting)) mg/dl Calcium (8.5-10.1) mg/dl Magnesium (1.7-2.4) mg/dl Total Bilirubin (0.2-1.0) mg/dl AST (13-39) U/L ALT (7-52) U/L Alkaline Phosphatase (34-104) U/L Troponin I High Sens (0-14) pg/ml C-Reactive Protein (0-0.5) mg/dl Total Protein (6.0-8.3) gm/dl Albumin (3.4-5.0) gm/dl Globulin (2.5-4.0) gm/dl Albumin/Globulin Ratio (0.9-2) Lipase (11-82) U/L TSH 2.493 (0.300-4.500) uIu/ml HCG, Qual (Negative) Urine Color Yellow Urine Appearance Clear (Clear) Urine pH 7.0 (4.5-7.5) Ur Specific Valley 1.013 (1.000-1.030) Urine Protein Negative (Negative) Urine Glucose (UA) Negative (Negative) Urine Ketones Negative (Negative) Urine Blood Negative (Negative) Urine Nitrite Negative (Negative) Urine Bilirubin Negative (Negative) Urine Urobilinogen Negative (Negative) Ur Leukocyte Esterase Trace H (Negative) Urine WBC (Auto) 1-5 (0-5) /hpf Urine RBC (Auto) 0-4 (0-4) /hpf U Hyaline Cast (Auto) 0 (0-5) /lpf U Epithel Cells (Auto) >30 H (0-5) /lpf Urine Bacteria (Auto) Negative (Negative) Lyme Disease IgG Ab (Negative) Lyme Disease IgM Ab (Negative) Monoscreen (Negative) SARS-CoV-2, RNA, NAAT NEGATIVE (NEGATIVE) Group A Strep (PCR) (NotDetected) Imaging Data Radiologist's Impression: Chest X-Ray 09/07/22 10:45 XR chest 1V portable CLINICAL HISTORY: Cough. COMPARISON STUDY: Chest radiograph June 08, 2022. FINDINGS: Lung volumes are normal. Lungs are clear. There is no pneumothorax or pleural effusion. Cardiac size is normal. Mediastinal contours are normal. There is no evidence for pulmonary edema. IMPRESSION: No acute cardiopulmonary findings. ACT 112: Negative or not required by law. Electronically signed by: Duc Kaye M.D. 09/07/2022 11:37 AM Abdomen Ultrasound 09/07/22 10:46 US abdomen limited CLINICAL HISTORY: Upper abd pain. TECHNIQUE: Multiple real-time sonographic images of the right upper quadrant were obtained. Comparison: Comparison is made to CT abdomen pelvis 06/13/2011 FINDINGS: The liver is diffusely homogenous with normal contour and echogenicity. No focal mass lesions are seen. No intrahepatic ductal dilatation is seen. Gallbladder polyps are seen measuring up to 0.4 cm. A sonographic Griffith's sign was not elicited by the hand baseball sewer. The common duct measures 0.5 cm in diameter at the level of the hepatic artery. The visualized portions of the pancreas appear normal. The right kidney shows normal echogenicity, cortical thickness and renal contour. The right kidney shows no evidence of hydronephrosis or mass. No ascites or free fluid is seen in Mendoza's pouch. IMPRESSION: 1. Unremarkable right upper quadrant ultrasound and in particular no evidence of acute cholecystitis. 2. Gallbladder polyps are seen. By SRU criteria, no further evaluation or follow-up is necessary. ACT 112: Negative or not required by law. Electronically signed by: Noah Narayanan M.D. 09/07/2022 12:36 PM Abdomen/Pelvis CT 09/07/22 12:[address] WITHOUT CONTRAST CT DOSE: 638.51 mGycm HISTORY: Acute generalized abdominal pain with leukocytosis throat pain, abd pain, leukocytosis TECHNIQUE: Multiaxial CT images of the abdomen and pelvis were performed without contrast. A dose lowering technique was utilized adhering to the principles of ALARA. COMPARISON STUDY: 08/20/2011 FINDINGS: Clear lung bases. 7 mm peripherally calcified splenic artery aneurysm. No pneumatosis or pneumoperitoneum. The spleen measures within the upper limits of normal in size at 12.4 cm. Unremarkable pancreas, gallbladder and adrenal glands. The liver is within normal limits. Unremarkable kidneys. No urolith or hydronephrosis. Partially decompressed urinary bladder with mild wall thickening. Uterus and adnexa are unremarkable. No abdominal aortic aneurysm or lymphadenopathy. Tiny hiatal hernia. No bowel obstruction or bowel wall thickening. Moderate rectal fecal retention. Appendectomy. Small fat filled umbilical and right paracentral periumbilical hernias, diastases of 8 mm. No acute fracture identified. Mild levoscoliosis. IMPRESSION: 1. No acute intra-abdominal or intrapelvic abnormality. 2. No bowel obstruction or bowel wall thickening. 3. Appendectomy. 4. Small fat filled periumbilical hernia. 5. Additional findings as above. ACT 112: Negative or not required by law. The above report was generated using voice recognition software. It may contain grammatical, syntax or spelling errors. Electronically signed by: Jayden Forrester M.D. 09/07/2022 1:[address] 09/07/22 12:37 CT soft tissue neck wo con CT DOSE: 369.56 mGycm CLINICAL HISTORY: throat pain, abd pain, leukocytosis TECHNIQUE: Multiaxial CT images of the neck were performed without contrast and reformatted in the sagittal and coronal planes. A dose lowering technique was utilized adhering to the principles of ALARA. COMPARISON STUDY: None. FINDINGS: The visualized brain parenchyma and orbits are unremarkable. The pterygopalatine fossa and parapharyngeal fat spaces are well-maintained. Moderate mucosal thickening within the maxillary sinuses and left sphenoid sinu s. Postoperative changes seen within the paranasal sinuses. The mastoid air cells are clear. No acute fractures within the visualized osseous structures. The lung apices are clear. Multinodular thyroid gland with the largest on the right measuring 8 mm. These do not meet CT criteria for follow-up. The major mucosal airways services are intact. The prevertebral soft tissues and epiglottis are normal in thickness. The parotid and submandibular glands are symmetric. No definite mass or abscess within the neck on this noncontrast study. No significant cervical lymphadenopathy. IMPRESSION: 1. Mild to moderate chronic sinus disease as described above. 2. The major mucosal airways surfaces appear intact. 3. No definite mass, abscess, lumbar lymphadenopathy within the neck. ACT 112: Negative or not required by law. Electronically signed by: Timmy Landa M.D. 09/07/2022 1:04 PM MDM Narrative Patient was seen and evaluated as above in room A11. Review was performed of triage nursing notes and vital signs. After obtaining a thorough history and physical examination the above work up was performed. Patient presents today for assessment of ongoing intermittent sore throat as well as upper abdominal quadrant pain. She clinically is well-appearing and nontoxic. Vital signs stable. Options of care were discussed with the patient. IV access was established. Labs were drawn. There is significant leukocytosis 41.53 which is new compared to previous. Hemoglobin low normal at 12. Platelet count elevated at 604. No emergent metabolic disturbance. I will however note an interval rise in the patient's LFTs. Troponin is normal. TSH reveals euthyroid state. Lipase normal. hCG negative. Urinalysis does not suggest infection. COVID testing negative. Strep test negative. Monotest negative. CT scan was obtained of the neck without contrast as the patient notes that she does not receive contrast noting history of allergic reaction. She does not receive premedication regimen. CT scans were obtained of the neck as well as abdomen/pelvis noting area of discomfort. Results as above. These were essentially negative for any emergent process. With the patient having intermittent pharyngitis/sore throat type symptoms in the setting of now increasing upper quadrant abdominal discomfort with new leukocytosis I do believe that further evaluation and management in the inpatient setting is warranted. Empiric antibiotics were held in the ED as she does not have any clear source of infectious etiology or concerning infectious symptoms at the present time. Case discussed with the hospitalist service. Please refer to further documentation regarding her stay. EKG reveals per my interpretation normal sinus rhythm at a rate of 86 bpm. QTc 442. QRS 88. No ST elevation. GCS: 15 In the evaluation and treatment of this patient the following differential diagnoses were entertained: Strep pharyngitis, viral pharyngitis, allergic rhinitis with post nasal drip, airway obstruction, head/neck neoplasias, GERD, peritonisllar abscess, epiglottitis, dnpo-iclp-lry-mouth disease, herpes simplex, mononucleosis, pneumonia, retropharyngeal abscess, scarlet fever, acute abdomen, bowel obstruction, cholecystitis, malignancy, among others. Impression & Plan Leukocytosis, Pharyngitis, Acute upper abdominal pain Discharge Plan Visit Data Chief Complaint: Abdominal Pain Stated Complaint: PRESSURE IN ABDOMEN ED Provider: Rodriguez Sandoval ED Midlevel Provider: Marcin Kelley Discharge Problem: Leukocytosis, Pharyngitis, Acute upper abdominal pain Patient Disposition: Admitted As Inpatient Condition: Good Forms Stand Alone Forms: [facility] Prescriptions Prescriptions: No Action epinephrine 0.3 mg/0.3 mL auto-injector 0.3 ml IM UD PRN (Reason: Allergic Reaction) omeprazole [Prilosec] 40 mg Capsule,Delayed Release(Dr/Ec) 40 mg PO DAILY ascorbic acid (vitamin C) [Vitamin C] 500 mg Tablet 500 mg PO BID ergocalciferol (vitamin D2) [Vitamin D2] 1,250 mcg (50,000 unit) Capsule 1,250 mcg PO DAILY Referrals Referrals: Manuel Altamirano MD [Primary Care Provider] -
--- NOTE | 2022-09-07 11:38 | XRay Report ---
XR chest 1V portable CLINICAL HISTORY: Cough. COMPARISON STUDY: Chest radiograph June 08, 2022. FINDINGS: Lung volumes are normal. Lungs are clear. There is no pneumothorax or pleural effusion. Car diac size is normal. Mediastinal contours are normal. There is no evidence for pulmonary edema. IMPRESSION: No acute cardiopulmonary findings. ACT 112: Negative or not required by law. Electronically signed by: Duc Kaye M.D. 09/07/2022 11:37 AM
[2022-09-07 11:50] LABS: Appearance Urine Clear (Clear); Bacteria Urine Automated Negative (Negative); Bilirubin Urine Negative (Negative); Blood Urine Negative (Negative); Cast Urine Automated 0 /lpf (0-5); Color Urine Yellow; Epithelial Cell Urine Auto >30 /lpf (0-5); Glucose Urine UA Negative (Negative); Ketones Urine Negative (Negative); Leukocyte Esterase Urine Trace (Negative); Nitrite Urine Negative (Negative); Protein Urine Negative (Negative); RBC Urine Automated 0-4 /hpf (0-4); Specific Gravity Urine 1.013 (1.000-1.030); Urobilinogen Urine Negative (Negative)
[2022-09-07 12:04] LABS: Albumin Globulin Ratio 1.6 (0.9-2); Albumin Level 4.4 gm/dl (3.4-5.0); BUN Creatinine Ratio 18.3 (10-20); Bilirubin,Total 0.5 mg/dl (0.2-1.0); Calcium 9.5 mg/dl (8.5-10.1); Creatinine Clr Calc Pharmacy 84.1 ml/min; Est GFR (African American) 97.4 ml/min; Globulin 2.8 gm/dl (2.5-4.0); Magnesium 2.3 mg/dl (1.7-2.4); Potassium 4.2 mmol/L (3.5-5.1); Total Protein 7.2 gm/dl (6.0-8.3)
[2022-09-07 12:07] LABS: Monotest Negative (Negative); Pregnancy Test, Serum Negative (Negative)
[2022-09-07 12:12] LABS: Troponin I High Sensitivity 4.2 pg/ml (0-14)
[2022-09-07 12:21] LABS: Hematocrit (blood only) 36.8 % (37.0-47.0); Mean Corpuscular Hemoglobin 29.8 pg (25.0-34.0); Mean Corpuscular Hgb Conc 32.6 g/dL (32.0-36.0); Mean Corpuscular Volume 91.3 fL (80.0-100.0); Mean Platelet Volume 10.1 fL (9.4-12.4); Nucleated RBC # (auto) 0.02 K/uL (0-0.12); Platelet Count 604 K/uL (130-400); RDW Coefficient of Variation 15.3 % (11.5-14.5); RDW Standard Deviation 50.5 fL (36.4-46.3); Red Blood Count 4.03 M/uL (4.20-5.40); White Blood Count 41.53 K/ul (4.8-10.8)
[2022-09-07 12:23] LABS: RBC Morphology Unremarkable
--- NOTE | 2022-09-07 12:37 | Ultrasound Report ---
US abdomen limited CLINICAL HISTORY: Upper abd pain. TECHNIQUE: Multiple real-time sonographic images of the right upper quadrant were obtained. Comparison: Comparison is made to CT abdomen pelvis 06/13/2011 FINDINGS: The liver is diffusely homogenous with normal contour and echogenicity. No focal mass lesions are see n. No intrahepatic ductal dilatation is seen. Gallbladder polyps are seen measuring up to 0.4 cm. A sonographic Griffith's sign was not elicited by the installer metal flooring. The common duct measures 0.5 cm i n diameter at the level of the hepatic artery. The visualized portions of the pancreas appear normal . The right kidney shows normal echogenicity, cortical thickness and renal contour. The right kidney sh ows no evidence of hydronephrosis or mass. No ascites or free fluid is seen in Mendoza's pouch. IMPRESSION: 1. Unremarkable right upper quadrant ultrasound and in particular no evidence of acute cholecystitis . 2. Gallbladder polyps are seen. By SRU criteria, no further evaluation or follow-up is necessary. ACT 112: Negative or not required by law. Electronically signed by: Noah Narayanan M.D. 09/07/2022 12:36 PM
[2022-09-07 12:39] LABS: Neutrophils % (manual) 69 %
[2022-09-07 12:40] LABS: Basophils % (manual) 1 %; Eosinophils % (manual) 1 %; Lymphocytes % (manual) 14 %; Metamyelocytes % (manual) 1 %; Monocytes % (manual) 1 %; Myelocytes % (manual) 13 %
--- NOTE | 2022-09-07 13:06 | CT Scan Report ---
CT soft tissue neck wo con CT DOSE: 369.56 mGycm CLINICAL HISTORY: throat pain, abd pain, leukocytosis TECHNIQUE: Multiaxial CT images of the neck were performed without contrast and reformatted in the sa gittal and coronal planes. A dose lowering technique was utilized adhering to the principles of DAVIN Moore COMPARISON STUDY: None. FINDINGS: The visualized brain parenchyma and orbits are unremarkable. The pterygopalatine fossa and parapharyngeal fat spaces are well-maintained. Moderate mucosal thickening within the maxillary sinus es and left sphenoid sinus. Postoperative changes seen within the paranasal sinuses. The mastoid air cells are clear. No acute fractures within the visualized osseous structures. The lung apices are farzana ar. Multinodular thyroid gland with the largest on the right measuring 8 mm. These do not meet CT cri teria for follow-up. The major mucosal airways services are intact. The prevertebral soft tissues and epiglottis are normal in thickness. The parotid and submandibular glands are symmetric. No definite mass or abscess within the neck on this noncontrast study. No significant cervical lymphadenopathy. IMPRESSION: 1. Mild to moderate chronic sinus disease as described above. 2. The major mucosal airways surfaces appear intact. 3. No definite mass, abscess, lumbar lymphadenopathy within the neck. ACT 112: Negative or not required by law. Electronically signed by: Timmy Landa M.D. 09/07/2022 1:04 PM
--- NOTE | 2022-09-07 13:11 | CT Scan Report ---
ABDOMEN AND PELVIS CT WITHOUT CONTRAST CT DOSE: 638.51 mGycm HISTORY: Acute generalized abdominal pain with leukocytosis throat pain, abd pain, leukocytosis TECHNIQUE: Multiaxial CT images of the abdomen and pelvis were performed without contrast. A dose lo wering technique was utilized adhering to the principles of ALARA. COMPARISON STUDY: 08/20/2011 FINDINGS: Clear lung bases. 7 mm peripherally calcified splenic artery aneurysm. No pneumatosis or pn eumoperitoneum. The spleen measures within the upper limits of normal in size at 12.4 cm. Unremarkabl e pancreas, gallbladder and adrenal glands. The liver is within normal limits. Unremarkable kidneys. No urolith or hydronephrosis. Partially decompressed urinary bladder with mild wall thickening. Uterus and adnexa are unremarkable. No abdominal aortic aneurysm or lymphadenopathy. Tiny hiatal hernia. No bowel obstruction or bowel wall thickening. Moderate rectal fecal retention. Appendectomy. Small fat filled umbilical and right paracentral periumbilical hernias, diastases of 8 mm. No acute fracture identified. Mild levoscoliosis. IMPRESSION: 1. No acute intra-abdominal or intrapelvic abnormality. 2. No bowel obstruction or bowel wall thickening. 3. Appendectomy. 4. Small fat filled periumbilical hernia. 5. Additional findings as above. ACT 112: Negative or not required by law. The above report was generated using voice recognition software. It may contain grammatical, syntax o r spelling errors. Electronically signed by: Jayden Forrester M.D. 09/07/2022 1:09 PM
--- NOTE | 2022-09-07 13:41 | History & Physical Report ---
Date of Service September 07, 2022 Assessment & Plan (1) Leukocytosis: Plan: Leukocytosis Leukocytosis of 41.53, patient has had several weeks of pharyngitis and intermittent pressure but not pain in her abdomen CT with contrast not able to be obtained due to severe allergy, patient reports she cannot be pretreated and has had severe hives and airway involvement Noncontrast CT of the soft tissue of the neck and abdomen does not show any acute findings. Gallbladder is noted to have a polyp, no ductal dilation or wall thickening is present. Given that she has had some right upper quadrant pressure can follow-up with [facility], although think this is unlikely to be the source of her leukocytosis Peripheral smear pending Lyme, Anaplasma pending Liver panel given mild transaminitis, EBV panel pending Hematology consulted CBC trended No night sweats or weight loss Family history of goiter, TSH/T4 pending Platelets reactive/elevated, hemoglobin is 12.0 History of basal cell carcinoma Was seen by DR. Martell dermatology in [place] has pt records. WIll obtain. DVT prophylaxis: Low risk, SCDs CODE STATUS: Full code Disposition: [facility] Diet: Regular (2) Pharyngitis: History of Present Illness Primary Care Provider: Manuel Altamirano MD Soila is a 47yo F present with intermittent sore throat x1 month and upper abdominal pain. She has been seen at Urgent care for sore throat with negative stress tests, symptoms have not improved so presented to ER for evaluation Upper abdominal pain on R and L quadrants without rebound [facility] negative Group A strep negative CT was noncontrasted. Offered premedication, pt declined due to severe hives/airway involvement in the past. Soila reports she went to [place] in may. Had a cold at that time with a cough, severe sinus congestion. 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 Went to [facility] Aug. Son and daughter have had colds as well Daughter got an antibiotic, Soila's tests were negative. caemb ack a week later, took doxycycline 100mg BID x7 days. Did not improve Has continued with nasal conchested and some r and l upper abdominal pressure but not pain. Flu/COVID/Strep negative on return to urgent care. epigastric tenderness on exam at that time, was put on omeprazole. Taken Sat-Saturday. Hydes 'bizzare' after and has many medication allergies and sensitivities. No rash. Passed, and went back to eat lunch. Sx mostly passed and made it through the day. Tired and yawning in the last day. No focal weakness, just tired. Feels similar when she takes benadryl for allergies. Establishing with Dr. Vázquez PCP has not done yet No fevers. Has had chills intermittently normally, had not changed. No night sweats No weight loss Mild nausea x1 episode when at urgent care, no vomiting. NO pain at time of admission No delmar colored stools Does have some pressure in RUQ which worsened after having a hogie MEdhx: Did have hypoglycemia, and hx of gestation diabetes which improved. 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 DR. Martell dermatology in [place] has pt records. WIll obtain. FHX: No DM, no cancer. Mother had thyroid issues and goiter. Medical History: Reviewed Medications: Reviewed. Vitamin D/C, fiber, and omeprazole. No other medications. Surgical History: Reviewed Allergies: Reviewed Social History: No tobacco or alcohol Code Status: Full Code Allergies Allergy/AdvReac Type Severity Reaction Status Date / Time cefazolin Allergy Severe HIVES Verified 02/22/21 22:03 ciprofloxacin [Cipro] Allergy Severe TROUBLE Verified 02/22/21 22:03 BREATHING Iodinated Contrast Media Allergy Severe HIVES,SOB Verified 02/22/21 22:03 red dye Allergy Severe RED #40 = Verified 02/22/21 22:03 HIVES ANAPHYLAXIS almond Allergy Intermediate HIVES Verified 02/22/21 22:03 erythromycin base Allergy Intermediate HIVES Verified 02/22/21 22:03 guaifenesin Allergy Intermediate HIVES Verified 02/22/21 22:03 meglumine antimonate Allergy Intermediate HIVES Verified 02/22/21 22:03 phenylephrine Allergy Intermediate HIVES Verified 02/22/21 22:03 shellfish derived Allergy Intermediate HIVES Verified 02/22/21 22:03 tree nut Allergy Intermediate HIVES Verified 02/22/21 22:03 codeine Allergy Mild RED AND Verified 02/22/21 22:03 NAUSEA AND HIVES AND FEELS LIKE PASS OUT aspirin Allergy Unknown HIVES; Verified 02/22/21 22:03 PATIENT TOLERATES IBUPROFEN bee venom protein (honey bee) Allergy Unknown swelling Verified 02/22/21 22:03 corn Allergy Unknown HIVES Verified 02/22/21 22:03 fructose Allergy Unknown HIVES Verified 02/22/21 22:03 wheat Allergy Unknown HIVES Verified 02/22/21 22:03 Home Medications Medication Instructions Recorded Confirmed Type epinephrine 0.3 mg/0.3 mL 0.3 ml IM UD PRN Allergic Reaction 02/22/21 02/22/21 History injection, auto-injector Past Med/Surg History Medical History Near syncope Subchorionic bleed Vaginal bleeding in patient at less than 20 weeks gestation Surgical History History of delivery Social History Smoking Status: Never smoker Preferred Language: Salvadorean marital status: Current Living Situation: Spouse and Family current occupational status: employed Feels Safe at Home: Yes Review of Systems Review of Systems: All systems reviewed & are unremarkable except as noted in HPI & below Physical Exam Physical Exam: General: A&Ox3. NAD. Cooperative. HEENT: Atraumatic, normocephalic. EoM intact. PERLAA. Posterior pharynx without erythema/exudate. Uvula midline. No anterior posterior adenopathy. Pulm: CTAB A&P. -wheezes, -rales, -rhonchi. Symmetrical chest rise. No increased work of breathing. No respiratory distress. Cardiac: RRR, -mrg. Radial pulses intact and symmetrical. Abdominal: Nontender, nondistended, soft. BS present. No epigastric tenderness. No palpable masses. Extremities: Warm, dry. No edema. No rash. Sensation intact in hands and feet without asymmetry, strength in extremities intact. Results & Data Results & Data ([facility]) Vital Signs (Past 12 Hours) Vital Signs Temp Pulse Pulse Resp BP BP Pulse Ox 09/07/22 11:57 36.8 C 68 16 127/75 97 09/07/22 10:23 36.7 C 90 20 126/79 100 O2 Del Method 09/07/22 11:57 Room Air 09/07/22 10:23 Room Air PG Care Time/CCT Total # of Minutes Spent Total Time Spent with Patient: Total time spent is greater than 50% in coordination of care (as documented) at patient's floor/unit and/or counseling patient: Coding Level of Care Code 75545 INT INP/OBS CARE 2/55MIN Diagnoses Leukocytosis D72.829 Pharyngitis J02.9
[2022-09-07 14:51] LABS: C Reactive Protein 0.52 mg/dl (0-0.5)
--- NOTE | 2022-09-07 15:14 | Electrocardiogram Report ---
Test Reason : Blood Pressure : / mmHG Vent. Rate : 086 BPM Atrial Rate : 086 BPM P-R Int : 166 ms QRS Dur : 088 ms QT Int : 370 ms P-R-T Axes : 026 -21 019 degrees QTc Int : 442 ms Normal sinus rhythm Poor R wave progression, consider anterior [place] vs. lead placement vs. LVH Abnormal ECG When compared with ECG of 08-JUN-2022 10:37, No significant change was found Confirmed by Ramin Costello ([id number]) on 09/07/2022 3:14:06 PM Referred By: REFERRED SELF Confirmed By:Ramin Costello
[2022-09-07 15:25] LABS: Lyme Ab IgG w/WB Rflx Negative (Negative); Lyme Ab IgM w/WB Rflx Negative (Negative)
--- NOTE | 2022-09-07 18:10 | Nuclear Medicine Report ---
NM hepatobiliary CLINICAL HISTORY: 47 years-old Female with ?jason. Acute right upper quadrant abdominal pain TECHNIQUE: Sequential anterior abdominal images were obtained through 60 minutes following the intra venous administration of 5.1 mCi of technetium-99m Choletec. COMPARISON: CT abdomen and pelvis of same day FINDINGS: There is prompt, uniform accumulation of the tracer by the liver. There is normal filling of the int rahepatic ducts and common bile duct. No definite excretion of the tracer into the duodenum. At 60 mi nutes. Delayed 65 minute image demonstrates excretion of tracer into the duodenum. The gallbladder fi lls normally. IMPRESSION: No scintigraphic evidence of cystic or common bile duct obstruction. ACT 112: Negative or not required by law. The above report was generated using voice recognition software. It may contain grammatical, syntax o r spelling errors. Electronically signed by: Jayden Forrester M.D. 09/07/2022 6:07 PM
[2022-09-07] MEDS ORDERED: ACETAMINOPHEN 325 MG TAB PO PRN (18:49)
[2022-09-08 07:40] LABS: Hemoglobin 13.1 g/dl (12.0-16.0); Mean Corpuscular Hemoglobin 29.5 pg (25.0-34.0); Mean Corpuscular Hgb Conc 32.8 g/dL (32.0-36.0); Mean Corpuscular Volume 90.1 fL (80.0-100.0); Mean Platelet Volume 9.7 fL (9.4-12.4); Nucleated RBC # (auto) 0.03 K/uL (0-0.12); Nucleated RBC % (auto) 0.1 %; Platelet Count 625 K/uL (130-400); RDW Coefficient of Variation 15.5 % (11.5-14.5); RDW Standard Deviation 50.4 fL (36.4-46.3); Red Blood Count 4.44 M/uL (4.20-5.40)
[2022-09-08 08:11] LABS: ANC (manual) 25.94 K/uL (1.4-6.5); Basophils # (manual) 1.82 K/uL (0-0.2); Basophils % (manual) 4 %; Eosinophils # (manual) 2.28 K/uL (0-0.50); Eosinophils % (manual) 5 %; Lymphocytes % (manual) 9 %; Metamyelocytes # (manual) 5.92 K/uL (0-0); Metamyelocytes % (manual) 13 %; Monocytes # (manual) 0.46 K/uL (0.11-0.59); Monocytes % (manual) 1 %; Myelocytes # (manual) 5.46 K/uL (0-0); Myelocytes % (manual) 12 %; Neutrophils # (manual) 25.94 K/uL (1.40-6.50); Neutrophils % (manual) 57 %
[2022-09-08 08:27] LABS: Calcium 9.8 mg/dl (8.5-10.1); Potassium 3.9 mmol/L (3.5-5.1)
[2022-09-08 08:33] LABS: BUN Creatinine Ratio 17.9 (10-20); Creatinine Clr Calc Pharmacy 81.4 ml/min; Est GFR (African American) 103.5 ml/min; Est GFR (Non-African American) 89.3 ml/min
[2022-09-08] MEDS: PANTOprazole 40 MG TAB PO SCH (08:37)
--- NOTE | 2022-09-08 09:24 | Oncology Consultation ---
Date of Consultation September 08, 2022 Assessment & Plan (1) Leukocytosis: (2) Thrombocytosis: Plan Pleasant 47-year-old female who presented with vague symptoms including upper abdominal pain and sore throat.Labs obtained in the ER significant for leukocytosis with white cell count of 41,000 and thrombocytosis with platelet count of 604,000. WBC manual differential revealed neutrophilia with 25.94 neutrophils, mildly elevated lymphocytes of 4.10, eosinophilia of 2.28, basophilia of 1.82, metamyelocytes of 5.92 and myelocytes of 5.46 with no blasts documented. I discussed potential causes of leukocytosis with patient and her including but not limited to infections, inflammation, medications and hematologic malignancies. However the presence of myelocytes, basophilia and eosinophila on WBC differential as well as thrombocytosis is highly concerning for chronic myelogenous leukemia. I recommended obtaining peripheral blood testing today to assess for BCR/ABL fusion gene. Given high clinical suspicion for CML, explained to her that she may be a candidate for hydroxyurea pending BCR/ABL testing results. At this time she however has no systemic symptoms and WBC count is less than 100,000. She did present with upper abdominal pain which may be due to mild splenomegaly but indicates that abdominal discomfort has improved/resolved at this time. Given red dye allergy with reported history of anaphylaxis and presence of red dye in hydroxyurea, will hold off on starting hydroxyurea at this time. She will be scheduled to follow-up with me in hematology clinic on , 09/13/2022 to discuss results of BCR/ABL mutation analysis. Patient and her were given the opportunity to ask questions which indicated were answered to their satisfaction. History of Present Illness Reason for Consultation: Leukocytosis Attending Physician: Robert Gasca MD History of Present Illness Pleasant 47-year-old female with no significant past medical history who was admitted to [facility] yesterday after presenting with sore throat and upper abdominal pain. Labs obtained at the ED revealed significant leukocytosis with white cell count of 41,000 and thrombocytosis with platelet count of 604,000. WBC manual differential revealed neutrophilia with 25.94 neutrophils, mildly elevated lymphocytes of 4.10, eosinophilia of 2.28, basophilia of 1.82, metamyelocytes of 5.92 and myelocytes of 5.46 with no blasts documented. Abdominal ultrasound on 09/07/2022 revealed unremarkable right upper quadrant ultrasound with no evidence of cholecystitis and gallbladder polyps. CT abdomen and pelvis also on 09/07/2022 was also unremarkable with spleen measuring within upper limits of normal at 12.[address] neck revealed mild to moderate chronic sinus disease with no abnormal lymphadenopathy. HIDA scan was normal She states that she initially developed a sore throat in early August, for which she was seen at urgent care with supportive care recommended at that time. Symptoms however worsened and she was subsequently placed on doxycycline. She also noted abdominal pain initially starting around the right upper quadrant which subsequently involved left upper quadrant for which omeprazole was prescribed last Saturday at [facility]. She states that she poorly tolerated omeprazole. At the time of evaluating patient, she indicated that symptoms had improvedShe denies fever, chills, night sweats, weight loss, palpable lymphadenopathy, significant fatigue or any other issues Allergies Allergy/AdvReac Type Severity Reaction Status Date / Time cefazolin Allergy Severe HIVES Verified 09/07/22 14:34 ciprofloxacin [Cipro] Allergy Severe TROUBLE Verified 09/07/22 14:34 BREATHING Iodinated Contrast Media Allergy Severe HIVES,SOB Verified 09/07/22 14:34 red dye Allergy Severe RED #40 = Verified 09/07/22 14:34 HIVES ANAPHYLAXIS almond Allergy Intermediate HIVES Verified 09/07/22 14:34 erythromycin base Allergy Intermediate HIVES Verified 09/07/22 14:34 guaifenesin Allergy Intermediate HIVES Verified 09/07/22 14:34 meglumine antimonate Allergy Intermediate HIVES Verified 09/07/22 14:34 phenylephrine Allergy Intermediate HIVES Verified 09/07/22 14:34 shellfish derived Allergy Intermediate HIVES Verified 09/07/22 14:34 tree nut Allergy Intermediate HIVES Verified 09/07/22 14:34 codeine Allergy Mild RED AND Verified 09/07/22 14:34 NAUSEA AND HIVES AND FEELS LIKE PASS OUT aspirin Allergy Unknown HIVES; Verified 09/07/22 14:34 PATIENT TOLERATES IBUPROFEN bee venom protein (honey bee) Allergy Unknown swelling Verified 09/07/22 14:34 corn Allergy Unknown HIVES Verified 09/07/22 14:34 fructose Allergy Unknown HIVES Verified 09/07/22 14:34 wheat Allergy Unknown HIVES Verified 09/07/22 14:34 Home Medications Medication Instructions Recorded Confirmed Type epinephrine 0.3 mg/0.3 mL 0.3 ml IM UD PRN Allergic Reaction 02/22/21 09/07/22 History injection, auto-injector ascorbic acid (vitamin C) 500 mg 500 mg PO BID 09/07/22 09/07/22 History tablet (Vitamin C) ergocalciferol (vitamin D2) 1,250 1,250 mcg PO DAILY 09/07/22 09/07/22 History mcg (50,000 unit) capsule (Vitamin D2) omeprazole 40 mg capsule,delayed 40 mg PO DAILY 09/07/22 09/07/22 History release Patient History Medical History Near syncope Subchorionic bleed Vaginal bleeding in patient at less than 20 weeks gestation Surgical History History of delivery Social History Smoking Status: Never smoker Hx Alcohol Use: No Hx Substance Use: No Preferred Language: Spanish Communication Ability: Effective Script Developer Required: No Beliefs That Will Affect Care: None marital status: Current Living Situation: Spouse and Family current occupational status: employed Other Information That Helps Us Care for You: No Feels Safe at Home: Yes Safety Concerns: Feels Safe At This Time Assistive Devices: Glasses Review of Systems Review of Systems: All systems reviewed & are unremarkable except as noted in Subjective Physical Exam Constitutional: WD/WN, vitals as above Eyes: PERRL, conjunctivae normal, anicteric sclerae ENMT: external ear and nose normal, oropharynx normal Neck: trachea midline, no thyromegaly Respiratory: normal respiratory effort, lungs clear to auscultation Cardiovascular: RRR, no murmur, no edema Gastrointestinal (Abdomen): normal bowel sounds, soft, nontender, no hepatosplenomegaly Lymphatic: no cervical or axillary lymphadenopathy Results & Data ([facility]) Vital Signs (Past 12 Hours) Vital Signs Temp Pulse Resp BP Pulse Ox O2 Del Method 09/08/22 07:24 36.9 C 81 16 114/75 94 Room Air
[2022-09-08 12:18] LABS: Uric Acid 4.5 mg/dl (2.6-7.2)
[2022-09-08] MEDS: HYDROXYUREA 500 MG CAP PO SCH (14:49)
[2022-09-08] MEDS ORDERED: diphenhydrAMINE 50 MG/ML VIAL IV PRN (15:07)
--- NOTE | 2022-09-08 19:20 | Hospitalist Progress Note ---
Date of Service September 08, 2022 Assessment & Plan (1) Leukocytosis: Plan: Leukocytosis Leukocytosis of 41.53, patient has had several weeks of pharyngitis and intermittent pressure but not pain in her abdomen CT with contrast not able to be obtained due to severe allergy, patient reports she cannot be pretreated and has had severe hives and airway involvement Noncontrast CT of the soft tissue of the neck and abdomen does not show any acute findings. Gallbladder is noted to have a polyp, no ductal dilation or wall thickening is present. Given that she has had some right upper quadrant pressure can follow-up with [facility], although think this is unlikely to be the source of her leukocytosis Peripheral smear pending Lyme, Anaplasma pending Liver panel given mild transaminitis, EBV panel pending Hematology consulted CBC trended No night sweats or weight loss Family history of goiter, TSH/T4 pending Platelets reactive/elevated, hemoglobin is 12.0 09/08-patient reports no significant abdominal pain Upon discussion with heme-onc patient's leukocytosis along with presence of basophils and eosinophils in the peripheral smear concerning for possible CML BCR/ABL mutation analysis sent Patient to be started on hydroxyurea after excluding red 40 allergy as coordinated by oncology Follow CBC and BMP daily History of basal cell carcinoma Was seen by DR. Martell dermatology in [place] has pt records. WIll obtain. DVT prophylaxis: Low risk, SCDs CODE STATUS: Full code Disposition: [facility] Diet: Regular (2) Pharyngitis: Admission and Anticipated Discharge Date Admission Date: September 07, 2022 Subjective Patient seen at bedside Reports no acute complaints, Denies chest pain or shortness of breath abdominal pain is improved Physical Exam Physical Exam: Head and ENT no thyroid enlargement trachea midline Cardiovascular S1-S2 are normal no S3 Lungs bilateral air entry fair no wheezing Abdomen soft nondistended positive bowel sounds no rebound tenderness Mild epigastric tenderness Extremity shows trace edema Neurologically no focal deficits Skin shows no rash no cyanosis Results & Data Results & Data ([facility]) Vital Signs (Past 12 Hours) Vital Signs Temp Pulse Resp BP Pulse Ox O2 Del Method 09/08/22 14:58 36.7 C 100 H 16 123/76 96 Room Air 09/08/22 07:24 36.9 C 81 16 114/75 94 Room Air Laboratory Results Short CBC 09/08/22 Range/Units 07:06 WBC 45.50 H* (4.8-10.8) K/ul Hgb 13.1 (12.0-16.0) g/dl Hct 40.0 (37.0-47.0) % Plt Count 625 H (130-400) K/uL BMP 09/08/22 07:06 Sodium 140 Potassium 3.9 Chloride 108 H Carbon Dioxide 27 BUN 14 Creatinine 0.78 Glucose 114 H Calcium 9.8 PG Care Time/CCT Total # of Minutes Spent Total Time Spent with Patient: Total time spent is greater than 50% in coordination of care (as documented) at patient's floor/unit and/or counseling patient: Coding Level of Care Code 37021 SUB INP/OBS CARE 235MIN Diagnoses Leukocytosis D72.829 Pharyngitis J02.9
[2022-09-08 20:53] VITALS: O2SAT 94
[2022-09-09 06:18] LABS: BUN Creatinine Ratio 21.4 (10-20); Calcium 9.8 mg/dl (8.5-10.1); Creatinine Clr Calc Pharmacy 64.8 ml/min; Est GFR (African American) 78.5 ml/min; Est GFR (Non-African American) 67.7 ml/min; Potassium 3.8 mmol/L (3.5-5.1)
[2022-09-09 06:23] LABS: Hematocrit (blood only) 41.3 % (37.0-47.0); Hemoglobin 13.9 g/dl (12.0-16.0); Mean Corpuscular Hemoglobin 29.8 pg (25.0-34.0); Mean Corpuscular Hgb Conc 33.7 g/dL (32.0-36.0); Mean Corpuscular Volume 88.4 fL (80.0-100.0); Mean Platelet Volume 9.9 fL (9.4-12.4); Nucleated RBC # (auto) 0.04 K/uL (0-0.12); Nucleated RBC % (auto) 0.1 %; Platelet Count 601 K/uL (130-400); RDW Coefficient of Variation 15.8 % (11.5-14.5); RDW Standard Deviation 50.6 fL (36.4-46.3); Red Blood Count 4.67 M/uL (4.20-5.40); White Blood Count 48.41 K/ul (4.8-10.8)
[2022-09-09 07:11] LABS: ALC (manual) 4.36 K/uL (1.2-3.4); ANC (manual) 32.43 K/uL (1.4-6.5); Basophils # (manual) 1.45 K/uL (0-0.2); Basophils % (manual) 3 %; Blast # (manual) 0.48 K/uL (0-0); Blast Cells % (manual) 1 %; Eosinophils # (manual) 1.45 K/uL (0-0.50); Eosinophils % (manual) 3 %; Lymphocytes # (manual) 4.36 K/uL (1.2-3.4); Lymphocytes % (manual) 9 %; Metamyelocytes # (manual) 3.39 K/uL (0-0); Metamyelocytes % (manual) 7 %; Monocytes # (manual) 1.45 K/uL (0.11-0.59); Monocytes % (manual) 3 %; Myelocytes # (manual) 4.36 K/uL (0-0); Myelocytes % (manual) 9 %; Neutrophils # (manual) 32.43 K/uL (1.40-6.50); Neutrophils % (manual) 67 %
[2022-09-09] MEDS: PANTOprazole 40 MG TAB PO SCH (08:45)
[2022-09-09] MEDS: HYDROXYUREA 500 MG CAP PO SCH (08:45)
[2022-09-09] MEDS ORDERED: HYDROXYUREA 500 MG CAP PO SCH (09:00)
[2022-09-09 15:26] VITALS: BP 120/80; PULSE 101; TEMP 99.1
--- NOTE | 2022-09-09 23:34 | Discharge Summary ---
Date of Service September 09, 2022 Admission HPI Per Admitting Provider Soila is a 47yo F present with intermittent sore throat x1 month and upper abdominal pain. She has been seen at Urgent care for sore throat with negative stress tests, symptoms have not improved so presented to ER for evaluation Upper abdominal pain on R and L quadrants without rebound [place] negative Group A strep negative CT was noncontrasted. Offered premedication, pt declined due to severe hives/airway involvement in the past. Soila reports she went to [place] in may. Had a cold at that time with a cough, severe sinus congestion. 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 Went to [place] Aug. Son and daughter have had colds as well Daughter got an antibiotic, Soila's tests were negative. caemb ack a week later, took doxycycline 100mg BID x7 days. Did not improve Has continued with nasal conchested and some r and l upper abdominal pressure but not pain. Flu/COVID/Strep negative on return to urgent care. epigastric tenderness on exam at that time, was put on omeprazole. Taken Sat-Saturday. Brogan 'bizzare' after and has many medication allergies and sensitivities. No rash. Passed, and went back to eat lunch. Sx mostly passed and made it through the day. Tired and yawning in the last day. No focal weakness, just tired. Feels similar when she takes benadryl for allergies. Establishing with Dr. Vázquez PCP has not done yet No fevers. Has had chills intermittently normally, had not changed. No night sweats No weight loss Mild nausea x1 episode when at urgent care, no vomiting. NO pain at time of admission No delmar colored stools Does have some pressure in RUQ which worsened after having a hogie MEdhx: Did have hypoglycemia, and hx of gestation diabetes which improved. 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 DR. [facility] in [place] has pt records. WIll obtain. FHX: No DM, no cancer. Mother had thyroid issues and goiter. Medical History: Reviewed Medications: Reviewed. Vitamin D/C, fiber, and omeprazole. No other medications. Surgical History: Reviewed Allergies: Reviewed Social History: No tobacco or alcohol Code Status: Full Code Principal Diagnosis Acute leukocytosis Discharge Exam Head and ENT no thyroid enlargement trachea midline Cardiovascular S1-S2 are normal no S3 Lungs bilateral air entry fair no wheezing Abdomen soft nondistended positive bowel sounds no rebound tenderness Mild epigastric tenderness Extremity shows trace edema Neurologically no focal deficits Skin shows no rash no cyanosis Discharge Data Allergies Allergy/AdvReac Type Severity Reaction Status Date / Time cefazolin Allergy Severe HIVES Verified 09/07/22 14:34 ciprofloxacin [Cipro] Allergy Severe TROUBLE Verified 09/07/22 14:34 BREATHING Iodinated Contrast Media Allergy Severe HIVES,SOB Verified 09/07/22 14:34 red dye Allergy Severe RED #40 = Verified 09/07/22 14:34 HIVES ANAPHYLAXIS almond Allergy Intermediate HIVES Verified 09/07/22 14:34 erythromycin base Allergy Intermediate HIVES Verified 09/07/22 14:34 guaifenesin Allergy Intermediate HIVES Verified 09/07/22 14:34 meglumine antimonate Allergy Intermediate HIVES Verified 09/07/22 14:34 phenylephrine Allergy Intermediate HIVES Verified 09/07/22 14:34 shellfish derived Allergy Intermediate HIVES Verified 09/07/22 14:34 tree nut Allergy Intermediate HIVES Verified 09/07/22 14:34 codeine Allergy Mild RED AND Verified 09/07/22 14:34 NAUSEA AND HIVES AND FEELS LIKE PASS OUT aspirin Allergy Unknown HIVES; Verified 09/07/22 14:34 PATIENT TOLERATES IBUPROFEN bee venom protein (honey bee) Allergy Unknown swelling Verified 09/07/22 14:34 corn Allergy Unknown HIVES Verified 09/07/22 14:34 fructose Allergy Unknown HIVES Verified 09/07/22 14:34 wheat Allergy Unknown HIVES Verified 09/07/22 14:34 Fish Containing Products Allergy Hives Verified 09/08/22 13:53 Consultations 09/07/22 13:44 ED Decision to Admit Stat 09/07/22 18:49 Consult Hematology Routine Ordered Studies 09/07/22 10:46 US abdomen limited Stat 09/07/22 12:37 CT abd pelvis wo con Stat CT soft tissue neck wo con Stat Hospital Course (1) Leukocytosis: Leukocytosis Leukocytosis of 41.53, patient has had several weeks of pharyngitis and intermittent pressure but not pain in her abdomen CT with contrast not able to be obtained due to severe allergy, patient reports she cannot be pretreated and has had severe hives and airway involvement Noncontrast CT of the soft tissue of the neck and abdomen does not show any acute findings. Gallbladder is noted to have a polyp, no ductal dilation or wall thickening is present. 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 mackay of hematology Patient will be DC'd on hydroxyurea as per her recommendation Patient to follow-up with hematology on for further diagnostics and work-up (2) Pharyngitis: Total Time Total Time Spent Total Time Spent (In Minutes): 45 Discharge Plan Discharge Items Patient Disposition: Home - Self-Care Reason For Visit: LEUKOCYTOSIS, ABDOMINA PRESSURE Discharge Diagnosis: acute leucocytosis Condition on Discharge: Good Activity: Per Instructions section Non-emergency contact: Primary Care Provider and Oncologist Call non-emergency contact if: your symptoms worsen Follow-up/Referrals: Manuel Altamirano MD [Primary Care Provider] - Diet: Heart Healthy Addtl Attending Provider Instructions: Dr Mackay - f/u in 4 days Pending Studies at Discharge: No Stand-Alone Forms: My [email or web address], Work/School Release, Smoking Cessation Medications and DC Order Prescriptions: New hydroxyurea 500 mg Capsule 500 mg PO QAM Qty: 15 0RF Continued epinephrine 0.3 mg/0.3 mL auto-injector 0.3 ml IM UD PRN (Reason: Allergic Reaction) omeprazole 40 mg Capsule,Delayed Release(Dr/Ec) 40 mg PO DAILY ascorbic acid (vitamin C) [Vitamin C] 500 mg Tablet 500 mg PO BID ergocalciferol (vitamin D2) [Vitamin D2] 1,250 mcg (50,000 unit) Capsule 1,250 mcg PO DAILY Discharge Orders: Discharge Order (Routine); Ordered 09/09/22 Ordered By: Robert Gasca Admission Data Admit Date/Time: 09/07/22 14:21 Attending Provider: Robert Gasca Admit Provider: Arvind Alvarado Primary Care Provider: Manuel Altamirano Other Providers: Arvind Alvarado ; Maria T Mackay Other Interventions: Discharge Summary Assessment (RN) Last Done: 09/09/22 17:34 Coding Level of Care Code 72127 INP/OBS DISCH >30 MIN Diagnoses Leukocytosis D72.829 Pharyngitis J02.9 Time Spent (min) 45
[2022-09-10 13:55] LABS: Epstein Barr Virus Early Ag Ab <9.00 U/mL; HBSAG NON-REACTIVE (NON-REACTIVE); Hepatitis A Antibody IgM NON-REACTIVE (NON-REACTIVE); Hepatitis B Core Antibody IgM NON-REACTIVE (NON-REACTIVE)
== END 2022-09-09 18:59 | disposition home or self-care (01) ==
LOC: ED 10:12 → 3W 10:12 → SUATTDRO 14:21 → 3W 18:22